=== PATIENT | male | born 1960 | race Caucasian/White ===

== ENCOUNTER 2025-03-10 03:20 | Day surgery (SDC) | payer MEDICARE, SELFPAY ==
[2025-03-10] VITALS (21 sets, daily range): BP systolic 95–149; BP diastolic 68–115; BMI 26.7; BMI 26.3
[2025-03-10 00:58] LABS: % Basophils 0.6 % (0-2); % Eosinophils 1.9 % (0-6); % Immature Granulocytes 0.4 % (0-0.5); % Monocytes 6.7 % (1.7-9.3); % Neutrophils 72.4 % (42.2-75.2); Absolute Eosinophils 0.1 10^3/uL (0-0.7); Absolute Lymphocytes 1.2 10^3/uL (1.2-3.4); Absolute Monocytes 0.5 10^3/uL (0.1-0.6); Absolute Neutrophils 4.9 10^3/uL (1.4-6.5); Hematocrit 38.6 % (39.0-52.0); Hemoglobin 13.2 g/dL (13.0-18.0); Mean Corp Hgb Conc. 34.2 g/dL (33.0-37.0); Mean Corpuscular Hgb 32.9 pg (27.0-31.0); Mean Corpuscular Volume 96.3 fL (80.0-94.0); Mean Platelet Volume 11.4 fL (7.4-10.4); Nucleated Red Blood Cells % 0 % (-); Platelet Count 191 10^3/uL (130-400); Red Blood Cell Count 4.01 10^6/uL (4.70-6.10); Red Cell Dist. Width 13.3 % (11.5-14.5); White Blood Cell Count 6.7 10^3/uL (4.8-10.8)
[2025-03-10 01:09] LABS: INR 0.97; PT 13.2 Sec (11.4-14.6)
[2025-03-10 01:10] LABS: APTT 29.7 Sec (23.4-35.0)
[2025-03-10 01:12] LABS: ALT (SGPT) 14 U/L (0-50); AST (SGOT) 21 U/L (17-59); Albumin 4.2 g/dl (3.5-5.0); Alkaline Phosphatase 52 U/L (38-126); Blood Urea Nitrogen 13 mg/dl (9-20); Calcium 9.3 mg/dl (8.4-10.2); Carbon Dioxide 25 mmol/L (22-30); Chloride 111 mmol/L (98-107); Estimated Creatinine Clearance 84 ml/min; Glucose 116 mg/dl (70-99); Potassium 4.1 mmol/L (3.5-5.1); Sodium 141 mmol/L (135-145); Total Bilirubin 0.6 mg/dl (0.2-1.3); Total Protein 6.5 g/dl (6.3-8.2); eGFR > 60.00
[2025-03-10 01:24] LABS: NT-proBNP 1730 pg/ml; Troponin I 0.041 ng/ml
[2025-03-10 01:35] LABS: Lipase 131 U/L (23-300)
[2025-03-10] MEDS: NITROSTAT (SUBLINGUAL) 0.4 MG SL ×2 (01:36→05:23)
[2025-03-10 01:42] LABS: TSH 0.76 uIU/ml (0.47-4.68)
[2025-03-10] MEDS: ASPIRIN 325 MG PO (02:02)
[2025-03-10] MEDS: HEPARIN 4000 UNITS IV (02:02)
--- NOTE | 2025-03-10 02:13 | HPS.HSE ---
Family Physician
-
Family Physician: NOT KNOW UNKNOWN - PT DOES
Chief Complaint
-
Chest pain
History of Present Illness
This is a 64-year-old was past medical history of CAD status post CABG on 2 separate occasions 2012, status post stenting of saphenous graft 2016, ischemic CMP EF 20%, tobacco dependence, COPD, hyperlipidemia, prior lower extremity DVT as well as a
right upper extremity DVT on anticoagulation with Xarelto, and noncompliance who gets most of his care at [facility] presents to the emergency department today with worsening chest pain.
Patient reports that he has stopped taking his Xarelto about 2 months ago. He also only intermittently takes the Plavix. He said that for the last 6 weeks he has been having exertional chest pain. This lasted few minutes and then resolves. He
initially thought that this was related to heartburn but ultimately stated that it was similar to his anginal episodes in the past. He is not associated with any shortness of breath or dyspnea on exertion until today.
While at a friend's house patient reports having substernal chest pressure and intermittently sharp stabbing pain that lasted for several minutes. It then resolved. There was no radiation at the time. Was not associated with nausea or vomiting.
No diaphoresis.
She attempted to walk a few feet across the street to his own home he had severe chest pressure and dyspnea. He spent almost 50 minutes just walking a few feet. He said the chest pressure persisted. He took some isosorbide at home (not on his
current list) and stated that the symptoms improved slightly. He called his friend who said to take him to the emergency department for evaluation.
His pain improved after sublingual nitroglycerin in the ED and currently states his pain is a 0-1 out of 10 down from 4-5 out of 10.
In the emergency department patient was afebrile, blood pressure was 120/85, pulse rate 80 and satting 98% on room air.
ECG shows normal sinus rhythm at a rate of 87 with PACs, there is old Q waves in the inferior leads. There is also T wave inversions in inferior leads, some upsloping ST segment in the anterior lead. Troponin was 0.04.
CBC is unremarkable. Electrolytes within normal limits. BUN/creatinine were also normal. His BNP is only 1700 which is unchanged from 9 years ago.
Chest x-ray is clear.
Medical History
Past Medical History
Past Medical History: Reports CAD (Status post PA, status post on multiple CABG surgeries), COPD, Hypercholesterolemia and Other
Additional Past Medical History:
Psoriasis
Past Surgical History: Reports Cardiac and Orthopedic (Multiple spinal surgeries including the cervical spine as well as the lumbar spine)
Social History
Tobacco: Smoker
Alcohol: None
Drug: None
Personal: Single
Employment: Retired
Family History
Family History: Not pertinent
Allergies / Home Medications
Allergies reflects when Allergies were last updated in [employer].
Home Medications with original date entered in [employer]
Allergy/Medication List:
Allergies
Allergy/AdvReac Type Severity Reaction Status Date / Time
Penicillins Allergy Anaphylaxis Verified 03/10/25 00:21
Home Medications
clopidogrel 75 mg tablet 75 mg PO DAILY ##30 05/31/16
lisinopril 2.5 mg tablet 2.5 mg PO DAILY ##60 06/29/16
Spironolactone 25 mg tablet, 25 mg p.o. daily
Rivaroxaban 20 mg tablet, 20 mg p.o. at bedtime,
Review of Systems
-
Constitutional: Reports No Symptoms
EENT: Reports No Symptoms
Respiratory: Reports Trouble Breathing
Cardiac: Reports Chest Pain
Abdomen/GI: Reports No Symptoms
: Reports No Symptoms
Musculoskeletal: Reports No Symptoms
Skin: Reports No Symptoms
Neurological: Reports No Symptoms
Endocrine: Reports No Symptoms
Hematologic/Lymphatic: Reports No Symptoms
Psych: Reports No Symptoms
Physical Exam
Vital Signs
Vital Signs
Temp Pulse Resp BP Pulse Ox
97.7 F 80 23 122/85 96
03/10/25 00:18 03/10/25 01:15 03/10/25 01:15 03/10/25 01:36 03/10/25 01:20
Physical Exam
General: Well Developed, Well Nourished and No Apparent Distress
HEENT: NormoCephalic, Moist mucous membranes and Atraumatic
Respiratory: Clear
Cardiac: S1/S2 and Regular Rhythm; No Murmur or Rub
GI: Soft, Non Tender, Non Distended and Normal Bowel Sounds; No Organomegaly
Rectal: Deferred by Provider
Musculoskeletal: No Clubbing, No Cyanosis and No Edema
Skin: No Rash
Neuro: Nonfocal/grossly intact
Laboratory Results
-
03/10/25 00:49
03/10/25 00:49
Laboratory Results
PT 13.2 Sec (11.4-14.6) 03/10/25 00:49
INR 0.97 03/10/25 00:49
APTT 29.7 Sec (23.4-35.0) 03/10/25 00:49
Total Bilirubin 0.6 mg/dl (0.2-1.3) 03/10/25 00:49
AST 21 U/L (17-59) 03/10/25 00:49
ALT 14 U/L (0-50) 03/10/25 00:49
Alkaline Phosphatase 52 U/L (38-126) 03/10/25 00:49
Troponin I 0.041 ng/ml H* 03/10/25 00:49
Lipase 131 U/L (23-300) 03/10/25 00:49
Data Reviewed
-
Diagnostic Radiology: Image Personally Visualized and interpreted
Medical Tests (Nuc Med, Echo, EKG etc): Image Personally Visualized and interpreted
Lab Data: Labs Reviewed by me
Old Records: Reviewed
Impression/Plan
-
IMPRESSION:
64-year-old with known history of CAD status post PA and status post CABG x 2 as well as PCI with 1 stent, reports EF of 20% but no AICD who presents to the emergency department with worsening chest pain over the last 6 weeks and persistent chest
pressure and severe dyspnea on exertion today. ECG shows old infarct with Q waves in the inferior leads, T wave inversions in inferior leads and some nonspecific T wave changes in the septal and anterior leads. Initial troponin was 0.04. His
chest pain was resolved after 1 dose of sublingual nitroglycerin. Patient is noncompliant with his Plavix, statin. He does not take a beta-jerome. History of DVT/PE and is noncompliant with Xarelto due to easy bruising and bleeding-taking the
Xarelto last about 2 months ago. Says he weaned himself off methadone and oxycodone 6 weeks ago.
PLAN:
Chest pain -suspect NSTEMI/ACS. Cannot rule out PE yet. Currently chest pain-free after sublingual nitroglycerin. ECG is nonischemic. Troponin 0.04.
- Admit to telemetry,
- Start aspirin, continue Plavix
� Heparin drip
- cycle cardiac enzymes
- Sublingual nitroglycerin as needed chest pain
- Patient not taking any diltiazem has no history of atrial fibrillation and not currently on anticoagulation
- He also does not report taking any beta-blockade, will hold beta jerome for now
- GDMT seems limited by blood pressure but should be on carvedilol, lisinopril, spironolactone
- non-compliant with statin due to severe myalgias with atorvastatin, checking lipid panel, consider ezetimibe, repatha
- echo,
- unlikely PE, check d-dimer, on AC for now.
- obtain records from Dr. Sudhir Guerrero in am
- cardiology consult
DVT PPX - on heparin gtt
Code Status - Full Code, does not want to have trach/prolonged mech ventilation > 10 days.
--- NOTE | 2025-03-10 02:17 | ED.GENMED ---
History of Present Illness
General
Chief Complaint: Chest Pain
Source: patient
Exam Limitations: none
Time Seen by Provider: 03/10/25 00:34
Nursing documentation reviewed up to this point in time: agreed with
History of Present Illness
History of Present Illness:
Note:
CHIEF COMPLAINT(S)
Chest pain and dyspnea.
HISTORY OF PRESENT ILLNESS
The patient is a 64-year-old male with a history of congestive heart failure who presents with chest pain experienced intermittently over the past six weeks. This evening, while sitting and talking, the patient experienced sudden-onset chest pain
and dyspnea. The patient reports difficulty walking more than 10 feet due to shortness of breath. Relief was achieved within five minutes after taking a dose of long-acting nitroglycerin (isosorbide). The patient describes ongoing chest pressure
despite resolution of dyspnea. The patient does not report a history of fluid retention or acute weight gain. He is currently under the care of a corporate director talent assessment. (Sudhir/Yolanda) The patient smokes approximately a pack of cigarettes per day and
expresses difficulty quitting despite using nicotine patches. No additional symptoms were noted at this time.
SOCIAL DETERMINANTS AFFECTING HEALTH
The patient reports smoking a pack of cigarettes per day and attempting smoking cessation with nicotine patches.
REVIEW OF SYSTEMS
- Cardiovascular: Chest pain, chest pressure, shortness of breath.
- Respiratory: Shortness of breath with exertion.
PHYSICAL EXAM
- Cardiovascular: Notable heart murmur auscultated.
PLAN
The plan includes further evaluation with laboratory tests to assess for dehydration and review of cardiac status as needed. Coordination with the patients corporate director talent assessment will be undertaken to determine if urgent consultation is necessary.
DIFFERENTIAL DIAGNOSIS
The Differential Diagnosis includes, in no particular order and is not limited to:
- Angina pectoris
- Myocardial infarction
- Congestive heart failure exacerbation
- Pulmonary embolism
- Aortic stenosis
- COPD exacerbation
- Pneumonia
- Pneumothorax
- Anxiety/panic attack
- Gastroesophageal reflux disease
CARE-UPDATE
03/10/25 - 01:[address] Hogan, sieve maker. Recommended starting Xarelto alongside heparin. Admission to the hospital service advised for further management.
Disposition:
SUMMARY OF ENCOUNTER
64-year-old male with extensive cardiac history presents with intermittent chest pain for the last six weeks that worsened this evening. EKG shows ischemia.
DISPOSITION
The patient will be admitted to the hospital service.
MANAGEMENT OF THE PATIENTS CARE WAS DISCUSSED WITH
Interventional cardiology recommended holding calcium channel blockers due to a reported 15% ejection fraction and starting heparin.
INDEPENDENT REVIEW OF LABS AND INTERPRETATION OF TESTS
My independent review of troponin is elevated to nine.
MEDICATION RECONCILIATION
Patient to be started on heparin and will receive aspirin.
MEDICAL DECISION MAKING
1. Number & Complexity of Problems: Chronic conditions affecting care include congestive heart failure and related ischemia. Differential diagnosis considered includes acute coronary syndrome.
2. Data Reviewed: EKG showing ischemia, troponin level.
3. Risk: Consideration of admission was made due to complexity/risk, which was deemed appropriate based on elevated troponin and symptomatic presentation.
PATHOLOGIES TO CONSIDER
- Acute coronary syndrome (chest pain with risk factors)
- Congestive heart failure exacerbation
Past History
Past History
ED Past Medical History: CAD, CHF and [place]
ED Past Surgical History: Cardiac (harvested radial artery for CABG)
Social History
Tobacco: Former smoker
Alcohol: None
Drug: None
Personal: Other (Noncontributory)
Living: with family
Employment: Employed
Family History
Family History: Other
Review of Systems
Review of Systems
Allergies reviewed?: Yes
All Other Systems: ROS reviewed and negative except as documented in HPI and ROS
Constitutional: Reports no symptoms
EENT: Reports no symptoms
Respiratory: Reports no symptoms
Cardiac: Reports chest pain
ABD/GI: Reports no symptoms
: Reports no symptoms
Musculoskeletal: Reports no symptoms
Skin: Reports no symptoms
Neurological: Reports no symptoms
Endocrine: Reports no symptoms
Hematologic/Lymphatic: Reports no symptoms
Psychiatric: Reports no symptoms
Phy Exam
General Physical Exam
General Presentation: well appearing and moderate distress
General Skin: warm and dry
General Habitus: normal
General Mental: alert
General Hydration: appears well hydrated
ENT Exam
ENT Exam: EOMI, pharynx normal, neck supple and normocephalic
Eye Exam
Eye Exam: PERRL, cornea clear and conjunctiva normal
Cardiovascular Exam
Cardiovascular Exam: regular rate/rhythm, no edema, no murmur and normal peripheral pulses
Systolic Murmur: 2/6
Pulmonary Exam
Pulmonary Exam: lungs clear, no respiratory distress, no rales, no crackles, no rhonchi, no stridor, no wheezing and no cough
Gastrointestinal Exam
Gastrointestinal Exam: normal bowel sounds, non tender, soft, no organomegaly, no pulsatile mass and non distended
Neurological Exam
Neurological Exam: alert, oriented x3, no motor deficits and speech normal
Musculoskeletal Exam
Musculoskeletal Exam: full ROM and no edema
Skin Exam
Skin Exam: normal color, warm/dry, no rash and no petechia
Psychiatric Exam
Psychiatric Exam: normal mood/affect
Scores
Heart Score for Chest Pain Patients
STEMI patient?: No
History: Highly Suspicious
ECG: Significant ST-Depression
Age: >/= 65 years
Risk Factors: >/= 3 Risk Factors or History of CAD
Troponin: >1 - <3 x Normal Limit
Heart Score for Chest Pain Patients: 9
Heart Score Risk: 72.7 % MACE over next 6 weeks
Course
Orders/Labs/Results
Orders:
Orders
03/10/25 00:22
ECG [Electrocardiogram (*1)] Urgent
Reason for Study: Shortness of Breath
EKG- Treatment ONCE
03/10/25 00:38
Cardiac Monitoring- Treatment ONCE
03/10/25 00:39
CR Chest - 2 Views Urgent
Comment:
Reason For Exam: cp
03/10/25 00:49
Complete Blood Count/With Diff Urgent
Comprehensive Metabolic Panel Urgent
Lipase Urgent
NT-proBNP Urgent
PTT Urgent
Prothrombin Time Urgent
TSH Urgent
Troponin I Q3H
03/10/25 01:31
Nitroglycerin Sublingual [Nitrostat (Sublingual)] 0.4 mg SL NOW STA
03/10/25 01:51
Heparin 4,000 units IV NOW STA
Pharmacy Request to Place See Dose Instructions PO NOW STA
Discontinue all Active Warfarin orders?: Yes
Nursing to Place Non Medication Order As Directed
Physician Order: PTT 6 hours after initial start of Heparin infusion
03/10/25 01:53
Aspirin 325 mg PO NOW STA
03/10/25 02:00
Heparin 59414 Units/250 ml 25,000 units in 250 ml IV PER PROTOCOL
Weight to be used for heparin protocol in kilograms (kg):: 84.4
Protocol:: Cardiac Tx/Acute Coronary
PTT Goal Range to be used:: PTT 73 to 111 seconds
Order type:: Initial
INITIAL Infusion Dose (UNITS/KG/hr) & then follow protocol:: 12 units/kg/hr
Infusion Dose in UNITS/hr & then follow protocol (UNITS/hr):: 1,000
INFUSION RATE in mL/hr & then follow protocol (mL/hr):: 10
PTT less than or equal to 64 seconds:: Increase rate by 200 units/hr (+ 2 mL/hr)
PTT 64.1 to 72.9 seconds:: Increase rate by 100 units/hr (+ 1 mL/hr)
PTT 73 to 111 seconds:: Target Range. No change in rate.
PTT 111.1 to 130.9 seconds:: Decrease rate by 100 units/hr (- 1 mL/hr)
PTT 131 to 199.9 seconds:: HOLD for 1 hr. Then decrease rate by 200 units/hr (- 2 mL/hr)
PTT greater than or equal to 200 seconds:: HOLD for 2 hrs & Notify Provider. Then decrease by 200 units/hr (-
2 mL/hr)
Lab follow-up:: Each change, PTT q6h until 2 consecutive are therapeutic. Then PTT
daily.
Pharmacy Request to Place See Dose Instructions IV DIRECTED
03/10/25 03:45
Troponin I Q3H
Abnormal Lab Results
03/10/25
00:49
RBC 4.01 L 10^6/uL
(4.70-6.10)
Hct 38.6 L %
(39.0-52.0)
MCV 96.3 H fL
(80.0-94.0)
MCH 32.9 H pg
(27.0-31.0)
MPV 11.4 H fL
(7.4-10.4)
Lymphocytes % 18.0 L %
(20.5-51.1)
Chloride 111 H mmol/L
(98-107)
Glucose 116 H mg/dl
(70-99)
Troponin I 0.041 H* ng/ml
03/10/25 00:49
03/10/25 00:49
Vital Signs
Initial and Last Documented VS:
Initial Vital Signs
Temp Pulse Resp BP Pulse Ox
97.7 F 90 22 132/92 96
03/10/25 00:18 03/10/25 00:18 03/10/25 00:18 03/10/25 00:18 03/10/25 00:18
Last Documented Vital Signs
Temp Pulse Resp BP Pulse Ox
97.7 F 80 23 122/85 96
03/10/25 00:18 03/10/25 01:15 03/10/25 01:15 03/10/25 01:36 03/10/25 01:20
*Radiology
Radiology exam reviewed: all reviewed NAD by ED Provider
*Pulse Oximetry
SaO2: 96
Oxygen Mode of Delivery: Room air
*Critical Care Note
Total Time (30-74mins, 75-104mins- exclusive of procedures): 44 (Critical care statement: A total of 44minutes of critical care time was provided for this patient. This time is separate from time utilized to perform the aforementioned documented
procedures. Aggregate critical care time includes only time during which I was engaged in work directl)
ED Attending Note
-
Portions of this chart may have been created with voice recognition software.� Occasional wrong word or��sound alike� substitutions may have occurred due to the inherent limitations of voice recognition software.
Discharge Plan
Departure
Patient Disposition: Admit
Date of Disposition: 03/10/25
Time of Disposition: 02:19
Admit to: IVU
Presentation/result/management discussed w/ accepting MD/DO: Hospitalist
Discharge Problem:
Acute non-ST elevation myocardial infarction (NSTEMI)
Prescriptions:
No Action
atorvastatin 80 MG tablet
80 mg PO QPM Qty: 30 3RF
clopidogrel 75 MG tablet
75 mg PO DAILY Qty: 30 3RF
carvedilol 3.125 MG tablet
3.125 mg PO BID Qty: 60 3RF
diltiazem HCl 120 MG capsule,extended release 24hr
120 mg PO DAILY Qty: 30 3RF
lisinopril 2.5 MG tablet
2.5 mg PO DAILY Qty: 60 3RF
Rx Instructions:
reduce to once daily until further instruction by corporate director talent assessment
Referrals:
UNKNOWN - PT DOES,NOT KNOW [Family Provider]
Interventions
Interventions:
*Risk Screen - Suicide Last Done: 03/10/25 00:18
*General Assessment Last Done: 03/10/25 01:19
*Neglect/Abuse Screening Last Done: 03/10/25 00:18
*ED COVID-19 Vaccine History Last Done: 03/10/25 01:19
ED- Cardiac Assessment Last Done: 03/10/25 01:20
ED- Pulmonary Assessment Last Done: 03/10/25 01:20
Discharge Date and Time
Print Language: BENGALI
[2025-03-10] MEDS: HEPARIN 25000 UNITS/250 ML IV (02:47)
[2025-03-10 05:36] LABS: Troponin I 0.042 ng/ml
--- NOTE | 2025-03-10 06:01 | W.PN.UPDATE ---
Update Note
Progress Note Update
- Around 5 AM, reported by the nursing staff that EKG result shows STEMI. EKG Result reviewed by admitting physician and cardiology shoes salesperson, Patient was free of chest pain at this time. Vital signs stable.
-Few mins later, chest pain started in the RT middle of the chest 03/28. BP 133/87, hr 82, afebrile RR 18, spo2 95%.
Pain down to /10 after one dose of nitro SL.
Repeated troponin 0.042 previously 0.041.
EKG repeated and reviewed with the admitting physician and cardiology shoes salesperson.
Nitro gtt started and transferred to IVU.
[2025-03-10] MEDS: OFIRMEV IV (06:34)
--- NOTE | 2025-03-10 06:34 | PTCARENOTE ---
Pt arrived to 4E from ED @ 0430. Q3 trop done and EKG done. EKG shows STEMI. Within 5 minutes- pt started to complain of CP- VSS. Gave a dose of nitro with positive results. CLIENT SERVICE ADMINISTRATOR contact cards- IVU orders to transfer pt. Pt and belongings went down
with pt in IVU rm [id number]
[2025-03-10] MEDS: OFIRMEV 100 IV (06:47)
[2025-03-10] MEDS: NITROGLYCERIN PREMIX 250 IV (07:07)
[2025-03-10] MEDS: NICODERM TRANSDERMAL 14 MG TRANSDERM (08:19)
[2025-03-10] MEDS: PLAVIX 75 MG PO (08:20)
[2025-03-10] MEDS: ALDACTONE 25 MG PO (08:20)
[2025-03-10] MEDS: COREG 3.125 MG PO ×2 (08:21→19:36)
[2025-03-10] MEDS: LOW STRENGTH ASPIRIN 81 MG PO (08:21)
[2025-03-10 09:04] LABS: APTT 37.6 Sec (23.4-35.0)
[2025-03-10 09:18] LABS: HDL Cholesterol 57 mg/dl; LDL Cholesterol, Calculated 149 mg/dl; Total Cholesterol 224 mg/dl (50-199); Triglyceride 94 mg/dl (10-149); Very Low Density Lipoprotein 18 mg/dl (0-30)
[2025-03-10 09:29] LABS: Troponin I 0.036 ng/ml
[2025-03-10 09:37] LABS: Glycohemoglobin (HgbA1c) 5.4 % (4.0-5.6)
[2025-03-10 09:45] LABS: D-Dimer 0.37 ug/mlFEU (0.00-0.50)
[2025-03-10] MEDS: IMODIUM 4 MG PO ×2 (09:53→21:50)
[2025-03-10] MEDS: NEURONTIN 800 MG PO ×3 (09:53→22:54)
--- NOTE | 2025-03-10 10:51 | CARDSERVLU ---
Echocardiogram with [facility] completed after protocol screening completed. Allergies verified.
Patent IV site: WR
IV site flushed with 0.9% NaCl pre and post administration.
Diluted bolus method utilized to enhance visualization of ventricular dimas.
Total volume given: ___3_ mL
Patient tolerated all procedures well without complications.
--- NOTE | 2025-03-10 11:03 | CON.CAR ---
Addendum entered and electronically signed by Ronal Boss MD 03/10/25 11:48:
I added lisinopril 2.5 mg twice daily for afterload reduction it appears he has taken this in the past
Original Note:
Consultation
Consultation Request
Date/Time Consultation Requested: March 10, 2025
Date/Time Consultation Performed: March 10, 2025
Requesting Provider: Hospitalist, [facility]
Performing Provider: Gera
Reason for Consultation: 6 weeks of recent onset angina which is progressive
Medical History
-
Chief Complaint: Unstable angina
History of Present Illness:
64-year-old male with extremely complex medical history and also sounds like he has been recently noncompliant with both his Plavix and Xarelto. He apparently has a hypercoagulable state with lower extremity and upper extremity DVT and has been
maintained on Xarelto therapy. He admits to not taking Xarelto or Plavix on and off for the last 2 months. He has had 6 weeks of consistent anginal type symptoms coming on with activity and better with rest. What brought him to the emergency room
yesterday is that he noticed substernal chest pressure after about 10 paces of walking which took longer to go away and he came to the emergency room. He has an extensive medical history which will be delineated in the HPI. 3 prior cardiac
surgeries with a cardiac catheterization and attempted intervention between the 2nd and 3rd coronary artery bypass. Initial cardiac bypass at [facility] in 2011 with a MG to the LAD and a vein to the diagonal which both are known to be
occluded. Subsequent second coronary bypass in 2012 at [facility] where a GELA was taken down but felt not to be adequate and a vein graft was placed to the LAD. In 2015 the SVG to the LAD was noted to have extremely high clot burden and
stenosis with a long [place] vessel occlusion. There is an attempted intervention on the MG to the LAD at that time which was unsuccessful as well see catheterization from Dr. Smith in May 2016. Subsequently presented for a third coronary
artery bypass in [address] Jean with significant adhesion and the left radial artery graft was placed off-pump from a virgin portion of the aorta down onto a site in the mid LAD distal to the prior grafts. The patient is known to have
significant [place]-apache diagonal disease as well. Periods of time he has had intermittent ejection fractions between 20 and 50% I did perform echocardiogram which will be related below. His presenting cardiogram here demonstrates transmural anterior
myocardial infarction with ST elevation which by gestalt appears to be an aneurysmal anterior wall segment. I do not have ECGs between 2016 and today to clarify timing. Presenting cardiogram here would also suggest a recent inferior infarct with T
wave inversions in 2 [address] segments in the inferior leads are dynamic at times. He has been pain-free since admission here on IV heparin and IV nitroglycerin. His troponins thankfully have been 0.03-0.04 and seen in the IBU
currently pain-free. His echocardiogram demonstrates an ejection fraction of approximately 20% with a large anterior apical wall motion abnormality with thinning and dyskinesis suggesting more of a chronic issue. The lateral and inferolateral
dimas at the base to mid ventricle appear to be moving relatively well. There is no LV thrombus. He does have moderate mitral regurgitation.
Past Medical History
Past Surgical History: Cardiac
Social History
Tobacco: Smoker
Alcohol: None
Drug: None
Personal:
Living: With Family
Employment: Other
Family History
Family History: Reviewed & Not Pertinent
Allergies / Home Medications
Allergy/AdvReac Type Severity Reaction Status Date / Time
Penicillins Allergy Anaphylaxis Verified 03/10/25 00:21
�Medication �Instructions �Recorded �Confirmed �Type
atorvastatin 80 mg tablet 80 mg PO QPM ##30 05/31/16 04/23/17 Rx
carvedilol 3.125 mg tablet 3.125 mg PO BID ##60 05/31/16 04/23/17 Rx
clopidogrel 75 mg tablet 75 mg PO DAILY ##30 05/31/16 04/23/17 Rx
diltiazem HCl 120 mg 120 mg PO DAILY ##30 06/29/16 04/23/17 Rx
capsule,extended release 24 hr
lisinopril 2.5 mg tablet 2.5 mg PO DAILY ##60 06/29/16 04/23/17 Rx
Review of Systems
-
All other systems: Negative unless noted
Respiratory: Trouble Breathing
Cardiac: Chest Pain
Physical Exam
Vital Signs
Temp Pulse Resp BP Pulse Ox
97.6 F 78 20 149/100 98
03/10/25 06:59 03/10/25 08:20 03/10/25 06:59 03/10/25 08:20 03/10/25 06:59
Lab Results
03/10/25 00:49
03/10/25 00:49
Troponin I 0.036 ng/ml H* 03/10/25 08:45
Lsg-M-Xbkmubmvfgi Pept 1730 pg/ml 03/10/25 00:49
Physical Exam
General: Well Developed, Well Nourished and No Apparent Distress
HEENT: Normocephalic and Anicteric
Respiratory: Clear
Cardiac: S1/S2 and Regular Rhythm
Breast: Deferred by me
GI: Soft, Non Tender and Non Distended
Rectal: Deferred by Provider
Genito-urinary: Other
Musculoskeletal: No Clubbing and No Cyanosis
Skin: Warm and Dry
Neuro: Awake, Alert and Oriented
Hematologic/Lymphatic: No Lymphadenopathy
Psych: Calm
Impression / Plan
-
Impression:
History of coronary artery bypass surgery in 2011 at [facility] MG to LAD and vein to diagonal both known to be occluded
Redo coronary artery bypass surgery 2012 at [facility] with vein graft to LAD
2016 cardiac catheterization demonstrating heavy clot burden with that vein graft to LAD and failed attempted intervention to the MG graft
Redo redo coronary artery bypass surgery off-pump with the left radial graft to the LAD distal to the other prior grafts in [address] Jean
Medical noncompliance
Ischemic cardiomyopathy
Tobacco use
Apparent hypercoagulable disorder with lower and upper extremity thrombus�DVT on chronic oral anticoagulation
Noncompliance with oral anticoagulation
Hypertension
Unstable angina
Recommendations:
-Continue IV nitroglycerin
-Continue IV heparin
-Would plan to perform left heart catheterization on Tuesday, March 11 as we would need to reassess his LAD territory and the radial graft which was placed in 2016 and also assess his circumflex and right coronary territories in case he has developed
new lesions in those territories. His story is consistent with progressive angina
- Obviously will need old records and details of the last 9 years of care up at [facility]. I would presume he has a lifelong indication for or in a coagulation given all his clotted grafts
-See full report but his echo would suggest a thinned and dyskinetic anterior apical left ventricle and I would be surprised if there is dormant or revascularizable territory in that region
- Patient in agreement with plan for left heart catheterization on Tuesday and will keep n.p.o.
- Heparin is being utilized as the antithrombotic regimen as well as DAPT therapy
- Post left heart catheterization would be reasonable to consider single antiplatelet plus NOAC therapy if stenting is performed
- I took time to answer all questions. Of note his left radial was taken for the third cardiac surgery
Data Reviewed
-
EKG: Tracing Personally Visualized and interpreted
Radiology: Image Personally Visualized and interpreted
Ultrasound: Image Personally Visualized and interpreted
Labs: Labs Reviewed by me
Old Records: Requested
[2025-03-10] MEDS: TYLENOL 650 MG PO ×2 (12:24→21:50)
[2025-03-10] MEDS: LASIX 20 MG IV (12:24)
--- NOTE | 2025-03-10 12:44 | W.PN.HOSP.TC ---
Today's Communication/Plan
-
Assessment / Plan
Assessment / Plan
General: No Apparent Distress, Comfortable and Conversant
HEENT: NormoCephalic, Moist mucous membranes, Atraumatic
Respiratory: Clear and Non Labored Respirations
Cardiac: S1/S2 and Regular Rhythm; No Rub or Gallop
GI: Soft, Non Tender, Non Distended and Normal Bowel Sounds
Musculoskeletal: No Edema, no deformity
Skin: Warm and dry
: NO Lazcano
Neuro: Awake, Alert, Nonfocal/grossly intact
Psych: Calm and Intact Judgment/Insight
Mr. Koenig is a 64-year-old male with a complex medical history including multiple cardiac bypass procedures (2011, 2012, 2015) and PCI, HFrEF, COPD, tobacco use, psoriatic arthritis (multiple orthopedic surgeries, chronic pain medications), methadone
dependence (recently weaned himself off), multiple DVTs (on Xarelto), and medication nonadherence who presented with worsening substernal chest pain relieved with nitro. He has been taking his Xarelto and Plavix intermittently over the past few
weeks. He has also been experiencing frequent loose stools/diarrhea over the past few weeks after he weaned himself off of methadone. In the ED he had ongoing chest pain relieved with nitro. His troponins were mildly elevated and his EKGs have
been abnormal. He has been started on IV heparin drip and nitro drip and admitted for further evaluation and management.
NSTEMI:
- Significant CAD history with multiple cardiac bypass procedures and PCI complicated by thromboses
- Continue anticoagulation with IV heparin and DAPT for now
- Echo shows severely reduced ejection fraction of 20% with severe global hypokinesis
- Continue nitro drip
- Cardiology following, plan for [facility] tomorrow 03/11
HFrEF:
- Echocardiogram here shows EF 20%
- Continue beta-blockade with carvedilol 3.125 mg p.o. twice daily
- Afterload reduction with lisinopril 2.5 mg p.o. twice daily
- Continue diuresis with Lasix 20 mg IV daily for now
- Spironolactone 25 mg p.o. daily
Psoriatic arthritis:
- With chronic pain treated most recently with methadone and gabapentin
- Patient titrated himself off methadone recently with subsequent development of diarrhea, relieved with loperamide which we will continue
- Continue gabapentin 800 mg 3 times daily which is a significantly high dose, however patient says he actually takes 800 mg 4 times a day at home
History of multiple DVTs:
- Uses Xarelto at home, currently holding well he is anticoagulated with IV heparin drip
- Patient also has history of multiple thromboses in his coronary grafts
- Will continue Xarelto once IV heparin drip discontinued
COPD:
- DuoNebs and oxygen as needed
- Med rec will need to be clarified to the patient's correct home medications can be continued
- Nicotine patch provided, encourage smoking cessation
DVT prophylaxis: IV heparin drip
CODE STATUS: Full code
Total time spent on today's encounter was 45 minutes
Anticipated Discharge: > 48 hours
Subjective/Interval History
-
Date of Service: March 10, 2025
Patient was seen and examined at bedside this morning. Currently comfortable. Continuing anticoagulation with IV heparin. Awaiting echocardiogram.
Objective Data
-
Labs:
Laboratory Results
03/10/25 03/10/25 03/10/25
00:49 08:45 15:30
WBC 6.7
Hgb 13.2
Hct 38.6 L
Plt Count 191
PT 13.2
INR 0.97
APTT 29.7 37.6 H Pending
Sodium 141
Potassium 4.1
Chloride 111 H
Carbon Dioxide 25
BUN 13
Creatinine 0.9
Glucose 116 H
Calcium 9.3
Total Bilirubin 0.6
AST 21
ALT 14
Alkaline Phosphatase 52
Vital Signs:
Vital Signs
Temp Pulse Resp BP Pulse Ox
97.8 F 81 20 113/73 98
03/10/25 12:01 03/10/25 12:24 03/10/25 12:01 03/10/25 12:24 03/10/25 12:01
Review of Systems
-
History Source: Patient
All other systems: Reviewed and negative
Abdomen/GI: Reports Diarrhea
Physical Exam
-
General: No Apparent Distress
[2025-03-10] MEDS: DUONEB 3 ML INH (14:40)
[2025-03-10] MEDS: SYMBICORT 160/4.5 MCG INHALER 2 PUFF INH (14:47)
--- NOTE | 2025-03-10 15:00 | PTCARENOTE ---
Pt c/o respiratory distress. Pulse ox 97 % on 2 liters nasal cannula O2. Posterior lungs rhonchoris w/ expiratory wheezing. Pt stated that he felt like he was going to pass out when sitting up in bed. Respiratory treatments as ordered. Pt
feels 100% better since rest and respiratory treatments.
--- NOTE | 2025-03-10 15:30 | PTCARENOTE ---
Pt noted to have an 8 beat run of VT. Pt asymptomatic. Will monitor.
[2025-03-10 16:51] LABS: APTT 47.8 Sec (23.4-35.0)
[2025-03-10] MEDS: ZESTRIL 2.5 MG PO (19:36)
--- NOTE | 2025-03-10 22:04 | PTCARENOTE ---
at approx 21:30 Patients IV pump alarming, this RN fixed pump. While in patients room pt c/o SOB and sternal chest pain. Described pain as
'constant aching and pressure'. Rated pain a /10. Patient sating 96% RA, applied 2L for comfort d/t him c/o SOB. Pulse ox now 96% on 2LO2. Pt reports good relief. This RN increased IV Nitroglycerin gtt from 5mcg to now 10mcg. BP stable. C/o
headache pain, PRN Tylenol administered--see NOV.
When asking patient in regards to the pain about when it begun and was he doing anything to aggravate the symptoms. Patient reports pain started about an hour and half ago. Patient explains that he was talking to a daughter on the phone and states
'I bump heads with her'. After the phone call with the daughter he was then on a phone call with a friend. Patient educated to report to RN immediately if any symptoms occur that way they can be addressed in a timely manor. Evgeny aware. IV
Heparin gtt infusing, next ptt due at 23:15. Patient aware to maintain NPO status at midnight for poss cath on 03/11. Call castro within reach.
[2025-03-11] VITALS (14 sets, daily range): BP systolic 92–132; BP diastolic 50–99; BMI 26.3; BMI 25.8
[2025-03-11 00:05] LABS: APTT 68.2 Sec (23.4-35.0)
[2025-03-11] MEDS: HEPARIN 25000 UNITS/250 ML IV (00:15)
[2025-03-11] MEDS: DUONEB 3 ML INH ×2 (04:58→23:51)
[2025-03-11] MEDS: TYLENOL 650 MG PO (05:52)
[2025-03-11 06:33] LABS: APTT 89.5 Sec (23.4-35.0)
--- NOTE | 2025-03-11 06:39 | PTCARENOTE ---
Patient stated 'I want to leave. I want to be home with my dog. If I'm going to croak I would rather be with my dog'. Emotional support provided. Patient reached out to friend 'Alondra' for support, whose currently looking after patients dog.
Patient willing to stay for procedure at this time. Evgeny IT SECURITY ENGINEER aware. No new orders. Pt remains NPO for procedure. Will pass along to day shift RN.
[2025-03-11] MEDS: SYMBICORT 160/4.5 MCG INHALER 2 PUFF INH ×2 (07:23→17:53)
[2025-03-11] MEDS: PLAVIX 75 MG PO (08:27)
[2025-03-11] MEDS: LOW STRENGTH ASPIRIN 81 MG PO (08:27)
--- NOTE | 2025-03-11 10:24 | W.PN.HOSP.TC ---
Today's Communication/Plan
-
Await cardiac catheterization
Assessment / Plan
Assessment / Plan
General: No Apparent Distress, Comfortable and Conversant
HEENT: NormoCephalic, Moist mucous membranes, Atraumatic
Respiratory: Clear and Non Labored Respirations
Cardiac: S1/S2 and Regular Rhythm; No Rub or Gallop
GI: Soft, Non Tender, Non Distended and Normal Bowel Sounds
Musculoskeletal: No Edema, no deformity
Skin: Warm and dry
: NO Lazcano
Neuro: Awake, Alert, Nonfocal/grossly intact
Psych: Calm and Intact Judgment/Insight
NSTEMI/CAD:
- Significant CAD history with multiple cardiac bypass procedures and PCI complicated by thromboses
- Continue anticoagulation with IV heparin and DAPT for now
- Echo shows severely reduced ejection fraction of 20% with severe global hypokinesis
- Continue nitro drip
- Cardiology following, plan for [facility] today 03/11. Troponin peaked at 0.042.
Chronic HFrEF:
- Echocardiogram here shows EF 20%
- Continue beta-blockade with carvedilol 3.125 mg p.o. twice daily
- Afterload reduction with lisinopril 2.5 mg p.o. twice daily
- Continue diuresis with Lasix 20 mg IV daily for now
- Spironolactone 25 mg p.o. daily
Psoriatic arthritis:
- With chronic pain treated most recently with methadone and gabapentin
- Patient titrated himself off methadone recently with subsequent development of diarrhea, relieved with loperamide which we will continue
- Continue gabapentin 800 mg 3 times daily which is a significantly high dose, however patient says he actually takes 800 mg 4 times a day at home
History of multiple DVTs:
- Uses Xarelto at home, currently holding well he is anticoagulated with IV heparin drip
- Patient also has history of multiple thromboses in his coronary grafts
- Will continue Xarelto once IV heparin drip discontinued
COPD:
- DuoNebs and oxygen as needed
- Med rec will need to be clarified to the patient's correct home medications can be continued
- Nicotine patch provided, encourage smoking cessation
DVT prophylaxis: IV heparin drip
CODE STATUS: Full code
Updated at the bedside.
Anticipated Discharge: Within 24 hours
Subjective/Interval History
-
Date of Service: March 11, 2025
Patient seen and examined. No complaints currently. Did have chest pain earlier in the morning.
Objective Data
-
Labs:
Laboratory Results
03/10/25 03/11/25 03/11/25
23:48 06:08 12:10
APTT 68.2 H 89.5 H Pending
Vital Signs:
Vital Signs
Temp Pulse Resp BP Pulse Ox
97.7 F 66 16 107/64 97
03/11/25 07:20 03/11/25 08:26 03/11/25 07:24 03/11/25 08:26 03/11/25 07:20
I&O
03/10/25 03/11/25 03/12/25
06:59 06:59 06:59
Intake Total 1708.4 / 1708.4
Output Total 1125 / 1125
Balance 583.4 / 583.4
Review of Systems
-
History Source: Patient
All other systems: Reviewed and negative
[2025-03-11] MEDS: NEURONTIN 800 MG PO ×3 (10:58→22:41)
[2025-03-11] MEDS: NICODERM TRANSDERMAL 14 MG TRANSDERM (10:58)
[2025-03-11] MEDS: COREG 3.125 MG PO (10:59)
[2025-03-11] MEDS: ZESTRIL 2.5 MG PO (10:59)
[2025-03-11] MEDS: ALDACTONE 25 MG PO (10:59)
[2025-03-11] MEDS: LASIX 20 MG IV (10:59)
--- NOTE | 2025-03-11 11:00 | PTCARENOTE ---
Pt is AOx3, no complaints of pain or discomfort. Heparin gtt and nitro gtt infusing per orders. NPO for process laboratory specialist later today. SR on tele monitor, VSS. CAll castro within reach.
--- NOTE | 2025-03-11 11:29 | CM ---
Chart reviewed. Patient is independent of ADLS, lives alone in a apartment, [address], 0 DME. Plan is for the patient to return home. CM to follow
[2025-03-11 13:40] LABS: APTT 71.2 Sec (23.4-35.0)
--- NOTE | 2025-03-11 14:31 | PTCARENOTE ---
pt left for lab systems analyst. heparin gtt stopped. friend at bedside updated. report given to lab systems analyst RN
--- NOTE | 2025-03-11 16:37 | ITS.CL.CATH ---
[facility] - Catheterization
Cardiac Catheterization
Procedure Report:
LEFT HEART CATHETERIZATION
Date of Procedure: March 11, 2025
Procedures performed:
1: Coronary angiography
2: Free radial and saphenous vein bypass graft angiography
3: Left ventricular hemodynamic assessment
Primary Biodiesel Engineering Manager: Dr. Edda Lassiter
INDICATION: The patient is a 64-year-old male with a past medical history significant for a ischemic cardiomyopathy status post 3 separate CABG procedures last in 2016 with a free radial off-pump graft to the LAD, medical noncompliance, chronic pain
status post spine stimulator and multiple back and neck surgeries, ongoing smoking, prior opiate dependence, and hypertension who has been off many of his medicines for about 7 weeks and presented with chest pain. Echocardiogram performed yesterday
showed severe LV dysfunction with an EF of 15 to 20%. He has been on chronic Xarelto therapy for his low EF with a risk for LV thrombus. Troponin was very mildly elevated at a peak of 0.042.
ACCESS: The patient was prepped and draped in usual sterile fashion. A 5 Japanese sheath was placed in the right common femoral artery using the Seldinger over the wire technique.
HEMODYNAMIC FINDINGS (mmHg):
LV(s/d,EDP): 110/14, 16
Ao(s/d,m): 110/63, 83
ANGIOGRAPHIC FINDINGS:
Single-plane Left Ventriculography in [place] Projection: Not done
Coronary Angiography:
Dominance: Right
Left Main: Normal
Left Anterior Descending: Flush proximal occlusion.
Ramus intermedius: Medium caliber, widely patent.
Left Circumflex: The left circumflex is a relatively large nondominant system that gives rise to 1 very large low lateral obtuse marginal branch that courses to the lateral apex. There is smooth 40% mid circumflex stenosis followed by a long 30%
proximal OM 1 lesion which is new compared to prior angiography in 2016. No evidence of flow-limiting disease with normal distal flow in all vessels.
Right Coronary: The right coronary artery is a very large caliber dominant vessel that gives rise to a widely patent medium caliber posterior descending artery and posterior left ventricular branch system.
Other angiography:
1: Free radial to LAD: The free radial graft has a very unusual takeoff from the transverse aorta between the innominate and left common carotid takeoffs. The graft was engaged with a 5 Japanese AL-1 catheter. The graft itself is widely patent with
no focal disease in the graft or at either anastomosis. There is retrograde filling of the LAD with a 80 to 90% stenosis in the LAD jeopardizing flow into the previously grafted diagonal branch which has normal resting flow. The saphenous vein
graft which was previously anastomosed to the diagonal branch is now flush occluded.
2: SVG to diagonal: Flush occlusion at the aorta.
Fluoroscopy Time (min): 11.8
Radiation Dose (mGy): 434
DAP (Gy.cm2): 37
Closure device: None. A TR band was applied for hemostasis at the right wrist.
Complications: None.
ASSESSMENT:
1: Widely patent free radial to LAD graft as described above.
2: Nonobstructive disease in the teller RCA and circumflex arteries.
3: Branch vessel obstructive disease in the diagonal branch which fills retrograde from the patent radial to LAD graft. I would treat this medically as any PCI attempt would be extremely challenging and associated with significant risk for injuring
the graft to the LAD.
CONCLUSIONS and RECOMMENDATIONS:
1: Aggressive medical therapy for coronary artery disease.
2: Smoking cessation remains critical intervention to reduce his future morbidity mortality from vascular events.
3: Encouraged medical compliance and regular follow-up.
Flaquito Smith M.D.
[2025-03-11] MEDS: FLUSH (NSS) 1 FLUSH IV (19:51)
[2025-03-11] MEDS: COREG PO (21:22)
[2025-03-11] MEDS: ZESTRIL PO (21:24)
--- NOTE | 2025-03-11 21:30 | PTCARENOTE ---
Received pt at change of shift resting in bed. SR on the monitor, HR in the 70's. Right femoral site C.D.I. No bleeding or hematoma noted at this time. Positive pulses. BP 92/60. Raisa Ca NP made aware and instructed to hold Coreg and
Lisinopril--see MAR. Pt reports dizziness when first getting up. Instructed pt to sit on the side of the bed before ambulating and to call RN for assistance if needed. pt was able to ambulate to bathroom safely. BP now 100/64. Call castro within reach.
--- NOTE | 2025-03-11 23:33 | PTCARENOTE ---
Pt called nursing to room after getting washed up by the sink to replace monitor electrodes and get new socks. Pt reported feeling good after getting cleaned up.
Once in bed pt c/o not being able to bring up any secretions with his cough. Pt reports usually after 2 days of no smoking he has a productive cough.
Pt then expressed concerns he could be developing pneumonia. Pt states 'every time I'm in the hospital I get it, you can check my records. ' I don't want to stay I want to be discharged but maybe they can give me a handful of abx to take home with
me since I don't have a family physician.' Lungs assessed diminished throughout with exp wheeze. rsp called for prn neb tx. Pt also given IS and encouraged to do Q1hr. Pt reports he does his IS at home daily.
[2025-03-12] VITALS (11 sets, daily range): BP systolic 79–123; BP diastolic 49–84; BMI 25.7
[2025-03-12] MEDS: DUONEB 3 ML INH (04:14)
[2025-03-12 05:26] LABS: Hematocrit 40.4 % (39.0-52.0); Hemoglobin 14.1 g/dL (13.0-18.0); Mean Corp Hgb Conc. 34.9 g/dL (33.0-37.0); Mean Corpuscular Volume 94.6 fL (80.0-94.0); Mean Platelet Volume 11.6 fL (7.4-10.4); Platelet Count 166 10^3/uL (130-400); Red Blood Cell Count 4.27 10^6/uL (4.70-6.10); Red Cell Dist. Width 13.2 % (11.5-14.5); White Blood Cell Count 5.2 10^3/uL (4.8-10.8)
[2025-03-12 05:53] LABS: Blood Urea Nitrogen 21 mg/dl (9-20); Calcium 9.7 mg/dl (8.4-10.2); Carbon Dioxide 28 mmol/L (22-30); Chloride 105 mmol/L (98-107); Estimated Creatinine Clearance 76 ml/min; Glucose 95 mg/dl (70-99); Potassium 4.2 mmol/L (3.5-5.1); Sodium 139 mmol/L (135-145); eGFR > 60.00
[2025-03-12] MEDS: SYMBICORT 160/4.5 MCG INHALER 2 PUFF INH (08:14)
[2025-03-12] MEDS: PLAVIX 75 MG PO (08:38)
[2025-03-12] MEDS: LOW STRENGTH ASPIRIN 81 MG PO (08:38)
[2025-03-12] MEDS: NICODERM TRANSDERMAL 14 MG TRANSDERM (08:38)
--- NOTE | 2025-03-12 08:41 | W.PN.HOSP.TC ---
Today's Communication/Plan
-
IV fluid bolus
Assessment / Plan
Assessment / Plan
General: No Apparent Distress, Comfortable and Conversant
HEENT: NormoCephalic, Moist mucous membranes, Atraumatic
Respiratory: Clear and Non Labored Respirations
Cardiac: S1/S2 and Regular Rhythm; No Rub or Gallop
GI: Soft, Non Tender, Non Distended and Normal Bowel Sounds
Musculoskeletal: No Edema, no deformity
Skin: Warm and dry
: NO [place]
Neuro: Awake, Alert, Nonfocal/grossly intact
Psych: Calm and Intact Judgment/Insight
Hypotension -asymptomatic. Systolic blood pressure 89 this morning. Confirmed in both arms. Has not received any meds so far today. Give IV fluid bolus. Hold parameters for meds. Stop IV Lasix. Was on diltiazem prior to admission,
discontinued.
ACS/CAD -
- Significant CAD history with multiple cardiac bypass procedures and PCI complicated by thromboses
- Continue anticoagulation with IV heparin and DAPT for now
- Echo shows severely reduced ejection fraction of 20% with severe global hypokinesis
Cardiac catheterization performed March 11 showing widely patent free radial to LAD graft, nonobstructive disease in the [place] RCA and circumflex arteries, branch vessel obstructive disease on diagonal branch which fills retrograde from the patent
radial to LAD graft. Cardiology recommends aggressive medical management, lifestyle changes, smoking cessation, compliance with home medications. Discussed with Dr. Smith.
Chronic HFrEF:
- Echocardiogram here shows EF 15-20%, severe global hypokinesis, stage II diastolic dysfunction, moderate MR.
- Continue beta-blockade with carvedilol 3.125 mg p.o. twice daily
- Afterload reduction with lisinopril 2.5 mg p.o. twice daily
- Spironolactone dose reduced to 12.5 mg daily
Psoriatic arthritis:
- With chronic pain treated most recently with methadone and gabapentin
- Patient titrated himself off methadone recently with subsequent development of diarrhea, relieved with loperamide which we will continue
- Continue gabapentin 800 mg 3 times daily which is a significantly high dose, however patient says he actually takes 800 mg 4 times a day at home
History of multiple DVTs:
- Uses Xarelto at home but not compliant
- Patient also has history of multiple thromboses in his coronary grafts
- Xarelto resumed.
COPD without exacerbation
- DuoNebs and oxygen as needed
- Med rec will need to be clarified to the patient's correct home medications can be continued
- Nicotine patch provided, encourage smoking cessation
Tobacco dependence -cessation advised multiple times.
Full code
Dispo -potential discharge if blood pressure improves today.
Anticipated Discharge: Today
Subjective/Interval History
-
Date of Service: March 12, 2025
Patient seen and examined. No complaints.
Objective Data
-
Labs:
Laboratory Results
03/12/25
04:43
WBC 5.2
Hgb 14.1
Hct 40.4
Plt Count 166
Sodium 139
Potassium 4.2
Chloride 105
Carbon Dioxide 28
BUN 21 H
Creatinine 1.0
Glucose 95
Calcium 9.7
Vital Signs:
Vital Signs
Temp Pulse Resp BP Pulse Ox
97.9 F 84 14 108/70 97
03/12/25 08:03 03/12/25 08:19 03/12/25 08:19 03/12/25 04:28 03/12/25 08:19
I&O
03/11/25 03/12/25 03/13/25
06:59 06:59 06:59
Intake Total 1708.4 / 1708.4 360 / 360
Output Total 1125 / 1125 300 / 300
Balance 583.4 / 583.4 60 / 60
Review of Systems
-
History Source: Patient
All other systems: Reviewed and negative
[2025-03-12] MEDS: XARELTO 10 MG PO (08:42)
[2025-03-12] MEDS: NSS 250 IV (08:51)
--- NOTE | 2025-03-12 09:35 | W.PN.CARDCBS ---
Addendum entered and electronically signed by Thaddeus Mason DO 03/12/25 10:35:
I saw and examined the patient.
The Staining Machine Operator's note was reviewed and I agree with the note.
Comment:
Plan:
Cont Plavix and Xarelto as per IC
Reviewed cath with pt and and with family on phone.
Cont Coreg but hold Lisinopril and aldactone with diarrhea and hypotension.
Would keep IVF hydration low volume with his significant cardiomyopathy.
Can slowly bring back GDMT meds including Lisinopril and aldactone as outpt as bp will allow
Cardiac rehab
Could be considered for eventual ICD given CM.
Pt and family want to follow up with [facility]
Possible d/c in the next 24 hrs.
Original Note:
Today's Communication / Plan
-
continue plavix, xarelto
lipitor 80mg QPM
coreg 3.125mg BID. hold lisinopril/aldactone for now
IVF bolus. follow BPs. avoid aggressive fluid resusc given marked CM
follow up with [facility] as requested
cardiac rehab
ambulate. possible DC later today vs in AM
discuss ICD as OP for CM
Impression / Plan
-
Impression:
Presentation with CP
NSTEMI
History of coronary artery bypass surgery in 2011 at [facility] MG to LAD and vein to diagonal both known to be occluded
Redo coronary artery bypass surgery 2012 at [facility] with vein graft to LAD
2016 cardiac catheterization demonstrating heavy clot burden with that vein graft to LAD and failed attempted intervention to the MG graft
Redo redo coronary artery bypass surgery off-pump with the left radial graft to the LAD distal to the other prior grafts [place] [address] Jean
Medical noncompliance
Ischemic cardiomyopathy
Tobacco use
Apparent hypercoagulable disorder with lower and upper extremity thrombus�DVT on chronic oral anticoagulation
Noncompliance with oral anticoagulation
Hypertension
Echo 03/10/2025: EF 15 to 20%, severe global hypokinesis with akinesis of apex and distal dimas, stage II diastolic dysfunction, moderately dilated LA, moderate MR, trace TR, trace AZ
Recommendations:
- Presented with chest pain and ruled in for NSTEMI with peak troponin of 0.042
- He has a history of ischemic cardiomyopathy, with new worsening in EF from 30% to 15 to 20%.
- Cardiac catheterization 03/11/25 with branch vessel obstructive disease in diagonal branch which fills retrograde from patent radial to LAD graft, plan to treat medically as PCI felt to be challenging and high risk for injury of graft to LAD.
Reviewed with patient 03/12/2025
- Plan to continue Xarelto 20 mg every afternoon (for LV thrombus prophylaxis) and Plavix 75 mg daily. Confirmed with ATC that this was regimen he was on prior to admission
- Groin site stable, soft, nontender to palpation
- LDL 149. Continue statin, transition from simvastatin which she was on as an outpatient to Lipitor 80 mg p.o. every afternoon
- Blood pressures noted to be low this morning, however patient is asymptomatic. IVF ordered by primary service. Would avoid aggressive fluid hydration given markedly reduced EF. Would attempt to continue Coreg. Lisinopril and Aldactone both
with hold parameters in place at this time. Would not be a candidate for Arni at present given hypotension.
- He was previously on Suboxone, however stopped this medicine several weeks ago. He reports some diarrhea as a result. Continue to monitor for withdrawal symptoms
- He and family wish to follow-up with [facility] upon discharge, which we will arrange
- Encouraged ambulation. If blood pressures improve, would plan for discharge later today
- Encouraged smoking cessation
- Cardiac rehab
- BMP in 1 week upon discharge
- will need to discuss ICD with patient as OP
- Discussed with nursing
Progress Note - Racing Board Marker
Subjective
Date of Service: March 12, 2025
Denies chest pain, shortness of breath, lightheadedness or dizziness
Objective
Labs:
03/12/25 04:43
03/12/25 04:43
Labs
Hgb 14.1 g/dL (13.0-18.0) 03/12/25 04:43
Hct 40.4 % (39.0-52.0) 03/12/25 04:43
Plt Count 166 10^3/uL (130-400) 03/12/25 04:43
PT 13.2 Sec (11.4-14.6) 03/10/25 00:49
INR 0.97 03/10/25 00:49
APTT 71.2 Sec (23.4-35.0) H 03/11/25 13:08
Sodium 139 mmol/L (135-145) 03/12/25 04:43
Potassium 4.2 mmol/L (3.5-5.1) 03/12/25 04:43
BUN 21 mg/dl (9-20) H 03/12/25 04:43
Creatinine 1.0 mg/dL (0.7-1.3) 03/12/25 04:43
Glucose 95 mg/dl (70-99) 03/12/25 04:43
Troponins
03/10/25 03/10/25 03/10/25
00:49 03:34 04:46
Troponin I 0.041 H* Cancelled 0.042 H*
03/10/25 03/10/25
06:45 08:45
Troponin I Cancelled 0.036 H*
Vital Signs and I&O:
Vital Signs
Temp Pulse Resp BP Pulse Ox
97.9 F 84 14 108/70 97
03/12/25 08:03 03/12/25 08:19 03/12/25 08:19 03/12/25 04:28 03/12/25 08:19
Vital Signs
Temp Pulse Resp BP Pulse Ox
97.9 F 84 14 108/70 97
03/12/25 08:03 03/12/25 08:19 03/12/25 08:19 03/12/25 04:28 03/12/25 08:19
Intake & Output
03/10/25 03/11/25 03/12/25 03/13/25
07:59 07:59 07:59 07:59
Intake Total 1708.4 / 1708.4 360 / 360 250 / 250
Output Total 1125 / 1125 300 / 300
Balance 583.4 / 583.4 60 / 60 250 / 250
Physical Exam
Physical Exam
GEN: No distress, awake, alert, oriented x3
HEENT: supple, anicteric, mmm, eomi
LUNGS: CTA B/L, no wheezes/rales
CV: Reg, S1/S2, no murmur
ABD: soft, BS+, NT/ND
EXT: No cyanosis, clubbing, edema
NEURO: Gross non-focal
SKIN: Warm, pink, dry. No rash. R groin site soft, NTTP, c/d/i
[2025-03-12] MEDS: LASIX IV (10:05)
[2025-03-12] MEDS: ALDACTONE PO (10:05)
[2025-03-12] MEDS: COREG 3.125 MG PO (10:06)
[2025-03-12] MEDS: ZESTRIL PO (10:06)
[2025-03-12] MEDS: NEURONTIN 800 MG PO ×2 (10:12→15:07)
--- NOTE | 2025-03-12 11:09 | PTCARENOTE ---
Assumed care at 0700, patient asleep arouses easily. NSR with frequent PAC/PVC, irregular, BP 89/63 in the left and 93/74 in the right. NSS 250 cc bolus given, BP post infusion 121/78. Patient asymptotic. Right groin cath site CDI. Nicotine patch
right shoulder. Call castro in reach
--- NOTE | 2025-03-12 11:36 | CM ---
Chart reviewed. Patient with low BP getting IVF bolus. Patient is independent of ADLS, lives alone in a apartment, [address], 0 DME. Plan is for the patient to return home. CM to follow
--- NOTE | 2025-03-12 14:35 | W.DS.TRANS ---
DC Summary - Senior Engineering Associate
-
Discharge Instructions:
Sleep Apnea Risk Intermediate
Discharge Diagnosis/Procedures Coronary artery disease, cardiac catheterization
Diet Low Cholesterol
Activity As tolerated
Driving Restrictions No driving for 24 hours
Bathing Restrictions None
Blood Work BMP in 1 week
Other Services Cardiac Rehab
Specialty Instructions Weigh Daily
Instructions:
Stand-Alone Forms: DC Instructions- Cath/EP Lab
Changes to Home Medications: Yes
Discharge Medications:
DC Medications w/original date entered in [facility]
atorvastatin 80 mg tablet 80 mg PO QPM ##30 05/31/16
carvedilol 3.125 mg tablet 3.125 mg PO BID ##60 05/31/16
clopidogrel 75 mg tablet 75 mg PO DAILY ##30 05/31/16
budesonide 160 mcg-glycopyr 9 mcg-formot 4.8 mcg/actuation HFA inhaler (Breztri Aerosphere) 2 inh inhalation BID 03/10/25
gabapentin 800 mg tablet 800 mg PO TID #90 tabs 03/12/25
nitroglycerin 0.4 mg sublingual tablet 0.4 mg sublingual [id number] PRN chest pain #30 tabs 03/12/25
rivaroxaban 20 mg tablet (Xarelto) 20 mg PO DAILY #30 tabs 03/12/25
Home Medication Changes
Rivaroxaban dose changed to 20mg daily.
Pending Results: No
--- NOTE | 2025-03-12 15:33 | PTCARENOTE ---
Patient discharged to home. Instructions reviewed with patient, he verbalized understanding. Prescription for BMP given to patient. IV and telemetry removed, VSS, escorted to main lobby
== END 2025-03-12 15:45 | disposition home or self-care (01) ==
LOC: SDS 03:20
PROVIDERS: Internal Medicine; Nurse Practitioner; ATTENDING PHYSICIAN Hospitalist; CONSULT PHYSICIAN Internal Medicine Cardiovascular Disease; EMERGENCY PHYSICIAN Student in an Organized Health Care Education/Training Program
DX: I21.4 Non-ST elevation (NSTEMI) myocardial infarction (principal); I25.10 Atherosclerotic heart disease of native coronary artery without angina pectoris; I11.0 Hypertensive heart disease with heart failure; I25.2 Old myocardial infarction; I25.5 Ischemic cardiomyopathy; I50.22 Chronic systolic (congestive) heart failure; I95.9 Hypotension, unspecified; F17.210 Nicotine dependence, cigarettes, uncomplicated; J44.9 Chronic obstructive pulmonary disease, unspecified; I34.0 Nonrheumatic mitral (valve) insufficiency; E78.00 Pure hypercholesterolemia, unspecified; L40.50 Arthropathic psoriasis, unspecified; G89.29 Other chronic pain; F11.20 Opioid dependence, uncomplicated; Z79.01 Long term (current) use of anticoagulants; Z79.02 Long term (current) use of antithrombotics/antiplatelets; Z79.899 Other long term (current) drug therapy; Z86.711 Personal history of pulmonary embolism; Z86.718 Personal history of other venous thrombosis and embolism; Z91.148 Patient's other noncompliance with medication regimen for other reason; Z95.1 Presence of aortocoronary bypass graft
CPT/HCPCS: 71046; 80048; 80053; 80061; 83036; 83690; 83880; 84443; 84484; 85025; 85027; 85379; 85610; 85730; 87070; 93005; 93306; 93459; 93567; 94640; 96365; 96366; 99291; 99406; C1894; Q9950; Q9967

== ENCOUNTER 2025-03-20 05:00 | Observation (INO) | payer MEDICARE, SELFPAY ==
[2025-03-19 22:22] VITALS: BMI 27.0
[2025-03-19 22:26] VITALS: BP 124/74
[2025-03-19 23:01] LABS: ALT (SGPT) 13 U/L (0-50); AST (SGOT) 18 U/L (17-59); Albumin 4.4 g/dl (3.5-5.0); Alkaline Phosphatase 46 U/L (38-126); Blood Urea Nitrogen 16 mg/dl (9-20); Calcium 9.4 mg/dl (8.4-10.2); Carbon Dioxide 24 mmol/L (22-30); Chloride 112 mmol/L (98-107); Glucose 130 mg/dl (70-99); Potassium 4.4 mmol/L (3.5-5.1); Sodium 140 mmol/L (135-145); Total Protein 6.9 g/dl (6.3-8.2); eGFR > 60.00
[2025-03-19 23:11] LABS: Troponin I 0.027 ng/ml
[2025-03-19 23:43] VITALS: BP 102/78
[2025-03-20] VITALS: BP 107/76
[2025-03-20 00:03] LABS: Hematocrit 36.2 % (39.0-52.0); Hemoglobin 12.7 g/dL (13.0-18.0); Mean Corp Hgb Conc. 35.1 g/dL (33.0-37.0); Mean Corpuscular Volume 95.8 fL (80.0-94.0); Nucleated Red Blood Cells % 0 % (-); Platelet Count 154 10^3/uL (130-400); Red Cell Dist. Width 12.9 % (11.5-14.5)
--- NOTE | 2025-03-20 00:24 | ED.GENMED ---
History of Present Illness
General
Chief Complaint: Chest Pain
Source: patient
Exam Limitations: none
Time Seen by Provider: 03/19/25 23:47
Nursing documentation reviewed up to this point in time: agreed with
History of Present Illness
History of Present Illness:
Note:
CHIEF COMPLAINT(S)
Hypotension, transient chest pain
HISTORY OF PRESENT ILLNESS
The patient is a 64-year-old male with a significant history of heart failure, CAD s/p CABG, depression, psoriasis, tobacco use disorder, presenting today with concerns of hypotension. Earlier today, around 8:00 AM, the patient visited his primary
care physician, who noted hypotension with blood pressure measurements around 80/60 mmHg, which is consistent with his morning readings [id number] surgery. The patient has previously undergone open-heart surgery in 2016, and reports a left
ventricular ejection fraction (LVEF) of 15 to 20%. He denies any current chest pain but he reports that he had chest pain earlier which he attributes to stress. The patient reports compliance with a medication regimen that includes a blood pressure
medication, but he questions its necessity due to persistent low blood pressure readings. He is also taking Isosorbide dinitrate for chest pain relief, which he has not needed today, marking improvement over previous days when he required it daily
for stress-induced pain. He also takes Rivaroxaban for anticoagulation and medication for cholesterol management. The patient denies any swelling in his legs. He had an open-heart surgery in 2016 and does not have a pacemaker. He will follow up with
his head of loss prevention next Tuesday. He denies any fevers or chills, abdominal pain, nausea, vomiting.
CHRONIC MEDICAL CONDITIONS SIGNIFICANTLY AFFECTING CARE
Chronic Heart Failure with reduced ejection fraction (EF 15-20%).
PHYSICAL EXAM
- Nursing notes reviewed and vital signs reviewed
General: Patient is well appearing and in no acute distress; non-toxic
Skin: Warm and dry, no rashes or lesions
Head: Normocephalic, atraumatic
Eyes: Sclera non-icteric. EOMs intact.
Cardiac: Regular rate, and rhythm, no murmurs, no tenderness to palpation of the external chest wall
Peripheral Vascular: No lower extremity swelling or edema
Pulm: Normal respiratory effort, no wheezes, rales, or rhonchi
Abdomen: No abdominal tenderness to palpation
Neuro: CN II-XII intact, no focal neurologic deficits.
Psychiatric: Appropriate mood and affect.
PROBLEM LIST
Acute:
- Hypotension
Chronic:
- Chronic heart failure with reduced ejection fraction
PLAN
- Obtain a chest X-ray
- Perform a blood test to assess current status
- ecg
- troponin
DIFFERENTIAL DIAGNOSIS
The Differential Diagnosis includes, in no particular order and is not limited to:
- Medication-induced hypotension
- ACS
- Heart failure decompensation
- Dehydration
- Cardiogenic shock
- Myocardial infarction
- Arrhythmia
- Pulmonary embolism
- Valvular heart disease
- Orthostatic hypotension
- Acute kidney injury
CHART REVIEW
- Reviewed discharge summary from 03/13/2025 patient seen for exertional chest pain NSTEMI or chest pain in the hospital he underwent cardiac catheterization with findings of stable CAD and was recommended for aggressive medical therapy
MDM/DISPOSITION
The patient is a 64-year-old male with a significant history of heart failure, CAD s/p CABG, depression, psoriasis, tobacco use disorder, presenting today with concerns of hypotension. His pressure was in the 80s systolically. Advised patient to
go to the ER. Patient also reports to the ER staff that he had chest pain earlier in the day but he is currently chest pain-free. Physical exam is well-appearing in no acute distress. He is mildly hypotensive. His initial troponin is normal.
Reviewed case with ER attending physician. In light of recent hospitalization for acute coronary syndrome and earlier episode of pain, will repeat Trope. Troponin did rise however patient remains chest pain-free and the ECG remains unchanged.
Reviewed case with ER attending who saw patient before last hospitalization. Plan will be to initiate heparin and refer to admission. I made Dr. Wendi Noble, [facility] head of loss prevention carbon paper coating machine setter aware of case and treatment plan.
Past History
Past History
ED Past Medical History: CAD, CHF and DE
ED Past Surgical History: Cardiac (harvested radial artery for CABG)
Social History
Tobacco: Former smoker
Alcohol: None
Drug: None
Personal: Other (Noncontributory)
Living: with family
Employment: Employed
Family History
Family History: Other
Review of Systems
Review of Systems
All Other Systems: ROS reviewed and negative except as documented in HPI and ROS
Phy Exam
Physical Exam
Physical Exam:
see hpi
Scores
Heart Score for Chest Pain Patients
STEMI patient?: No
History: Moderately Suspicious
ECG: Normal
Age: >/= 65 years
Risk Factors: >/= 3 Risk Factors or History of CAD
Troponin: >1 - <3 x Normal Limit
Heart Score for Chest Pain Patients: 6
Heart Score Risk: 20.3% MACE over next 6 weeks
Course
Orders/Labs/Results
Orders:
Orders
03/19/25 22:23
EKG [Electrocardiogram (*1)] Urgent
Reason for Study: Chest Pain
EKG- Treatment ONCE
03/19/25 22:40
CMP [Comprehensive Metabolic Panel] Urgent
Pro-BNP [NT-proBNP] Urgent
Troponin I Urgent
03/19/25 23:57
Complete Blood Count/With Diff Urgent
03/20/25 00:12
CR Chest - 2 Views Urgent
Comment:
Reason For Exam: chest pain, hx of heart failure
03/20/25 01:30
Electrocardiogram (*1) Urgent
Reason for Study: Chest Pain
03/20/25 01:37
Troponin I Urgent
03/20/25 03:22
Heparin 4,000 units IV NOW STA
Pharmacy Request to Place See Dose Instructions PO NOW STA
Discontinue all Active Warfarin orders?: Yes
03/20/25 03:30
Heparin 76513 Units/250 ml 25,000 units in 250 ml IV PER PROTOCOL
Weight to be used for heparin protocol in kilograms (kg):: 85.5
Protocol:: Cardiac Tx/Acute Coronary
PTT Goal Range to be used:: PTT 73 to 111 seconds
Order type:: Initial
INITIAL Infusion Dose (UNITS/KG/hr) & then follow protocol:: 12 units/kg/hr
Infusion Dose in UNITS/hr & then follow protocol (UNITS/hr):: 1,000
INFUSION RATE in mL/hr & then follow protocol (mL/hr):: 10
PTT less than or equal to 64 seconds:: Increase rate by 200 units/hr (+ 2 mL/hr)
PTT 64.1 to 72.9 seconds:: Increase rate by 100 units/hr (+ 1 mL/hr)
PTT 73 to 111 seconds:: Target Range. No change in rate.
PTT 111.1 to 130.9 seconds:: Decrease rate by 100 units/hr (- 1 mL/hr)
PTT 131 to 199.9 seconds:: HOLD for 1 hr. Then decrease rate by 200 units/hr (- 2 mL/hr)
PTT greater than or equal to 200 seconds:: HOLD for 2 hrs & Notify Provider. Then decrease by 200 units/hr (-
2 mL/hr)
Lab follow-up:: Each change, PTT q6h until 2 consecutive are therapeutic. Then PTT
daily.
03/20/25 03:34
PTT Urgent
Comment: Obtain baseline before beginning heparin infusion if not already collected
03/20/25 04:[address] See Dose Instructions IV DIRECTED
03/20/25 04:45
Admit/Transfer Patient As Directed
Co-Sign Provider:
Level of Care: Observation services
Assign to:: Telemetry
Physician / Group: Naseem
Diagnosis: Hypotension
Reason for Telemetry: Chest Pain syndromes
Date to Stop Telemetry: 03/22/25
Time to Stop Telemetry: 11:00
PRN Pain Medication Management As Directed
May give lesser potent ordered pain med per pt: Yes
preference::
Protocol:: Medication orders for pain may be administered in a
manner that supports deferring to patient preference
when the pt is:
- Requesting an ordered lesser potent pain medication.
Least to most potent pain medications are defined
as: acetaminophen < NSAID < tramadol < opioids
(morphine, oxycodone, hydromorphone).
- Requesting a lesser dose of the same medication IF
ORDERED.
- Requesting a less intrusive route of administration
if both routes are prescribed by the provider (PO <
IV).
03/20/25 04:48
Code Status As Directed
Resuscitation Status: Full Code
03/20/25 06:00
EKG [Electrocardiogram (*1)] IN AM
Reason for Study: Chest Pain
NPO
Allow oral meds: Yes
Allow clear liquids: Sips of Clears
Basic Metabolic Panel IN AM
Acetaminophen [Tylenol] 650 mg PO Q4HPRN PRN
Morphine Sulfate 2 mg IV Q4HPRN PRN
Nitroglycerin Sublingual [Nitrostat (Sublingual)] 0.4 mg SL [id number] PRN chest pain
03/20/25 06:00
CARDIOLOGY CONSULT Routine
Consulting Provider: Reagan Noble
Was physician already notified: Yes
Reason for consult: CAD
Activity As Directed
Activity Level: Ambulate
With Assistance
Bladder Scan As Directed
Follow Bladder Retention/Intermittent Cath Algorithm?: Yes
PRN if no void in __ hours: 6
Frequency: Per Retention Algorithm
If Bladder Scan Result >: 400
then:: Straight cath
EKG with chest pain [ECG as needed] As Directed
ECG as needed for:: Chest Pain
I/O [Intake/ Output] As Directed
Frequency: Per unit guidelines
Straight Cath As Directed
Frequency: Per Retention Algorithm
Additional Instructions: straight cath as needed per acute urinary retention algorithm for 24 hrs
Additional Instructions: for bladder scan greater than 400 mL
Vital Signs As Directed
Frequency: Per unit guidelines
Weight As Directed
Frequency: Daily
Oxygen Therapy [O2 Therapy] [RESP] Routine
Titrate/Wean O2 to maintain O2 sat greater than (%): 94
03/20/25 06:39
Complete Blood Count/No Diff IN AM
Troponin I Q6H
03/20/25 08:00
Budesonide/Formoterol 160/4.5 [Symbicort 160/4.5 Mcg Inhaler] 2 puff INH R BID
Carvedilol [Coreg] 3.125 mg PO BID
Clopidogrel Bisulfate [Plavix] 75 mg PO DAILY
Gabapentin [Neurontin] 600 mg PO TID
Rivaroxaban [Xarelto] 20 mg PO DAILY
03/20/25 12:00
Troponin I Q6H
03/20/25 18:00
Troponin I Q6H
Atorvastatin [Lipitor] 80 mg PO QPM
03/22/25 11:00
DC Protocol for Telemetry ONCE
Abnormal Lab Results
03/19/25 03/19/25 03/20/25
22:40 23:57 01:37
RBC 3.78 L 10^6/uL
(4.70-6.10)
Hgb 12.7 L g/dL
(13.0-18.0)
Hct 36.2 L %
(39.0-52.0)
MCV 95.8 H fL
(80.0-94.0)
MCH 33.6 H pg
(27.0-31.0)
MPV 11.6 H fL
(7.4-10.4)
Monocytes % 9.5 H %
(1.7-9.3)
Chloride 112 H mmol/L
(98-107)
Glucose 130 H mg/dl
(70-99)
Troponin I 0.037 H* D ng/ml
03/19/25 23:57
03/19/25 22:40
Vital Signs
Initial and Last Documented VS:
Initial Vital Signs
Temp Pulse Resp BP Pulse Ox
98.4 F 96 15 124/74 98
03/19/25 22:26 03/19/25 22:26 03/19/25 22:26 03/19/25 22:26 03/19/25 22:26
Last Documented Vital Signs
Temp Pulse Resp BP Pulse Ox
97.4 F 74 16 110/76 96
03/20/25 06:33 03/20/25 06:33 03/20/25 06:33 03/20/25 06:33 03/20/25 06:33
*Pulse Oximetry
SaO2: 98
Oxygen Mode of Delivery: Room air
Patient hypoxic: no
*Critical Care Note
Total Time (30-74mins, 75-104mins- exclusive of procedures): Not Applicable
ED Attending Note
-
Portions of this chart may have been created with voice recognition software.� Occasional wrong word or��sound alike� substitutions may have occurred due to the inherent limitations of voice recognition software.
Discharge Plan
Departure
Patient Disposition: Admit
Date of Disposition: 03/20/25
Time of Disposition: 03:33
Admit to: Med/Surg
Presentation/result/management discussed w/ accepting MD/DO: Hospitalist
Patient with high blood pressure during this ER visit?: No
Condition: Fair
Discharge Problem:
Non-ST elevation DE (NSTEMI)
Interventions
Interventions:
*Risk Screen - Suicide Last Done: 03/20/25 01:56
*General Assessment Last Done: 03/19/25 22:26
*Neglect/Abuse Screening Last Done: 03/19/25 22:26
*ED- Fall Risk Assessment Last Done: 03/20/25 01:23
*ED COVID-19 Vaccine History Last Done: 03/20/25 06:02
*Nursing Disposition Last Done: 03/20/25 06:02
ED- Cardiac Assessment Last Done: 03/20/25 00:03
Discharge Date and Time
Discharge Date/Time: 03/20/25 06:03
[2025-03-20 02:29] LABS: Troponin I 0.037 ng/ml
[2025-03-20 03:18] VITALS: BP 111/72
[2025-03-20] MEDS: HEPARIN 4000 UNITS IV (03:58)
[2025-03-20 04:00] VITALS: BP 103/80
[2025-03-20 04:00] LABS: APTT 31.5 Sec (23.4-35.0)
--- NOTE | 2025-03-20 04:50 | HPS.HSE ---
Family Physician
-
Family Physician: Maria Luisa Black
Chief Complaint
-
Low BP
History of Present Illness
Patient is a 64y M with PMH significant for ASCVD, labile BP and CHFrEF who presents to ED for evaluation of low BP. Patient tells me that he was seen by a new PCP Tuesday. His BP was low in the office (80s systolic) and he was advised to
present immediately to the ED. Patient states that he had things to do and he drove to [place] and went about his day. He denies any symptoms of lightheadedness, dizziness, chest pain, dyspnea, etc.
He states that 'people were bugging me to come in' so he finally presented to the ED for evaluation.
At the time of my examination, patient is resting comfortably. He has no complaints.
He was recently hospitalized 03/10 - 03/12 secondary to chest pain/ ACS. He underwent cath on 03/11 which showed stable CAD. No stents / interventions performed.
He states that he has been compliant with his medications since his recent hospital discharge.
Medical History
Past Medical History
Past Medical History: Reports CAD (Status post [place], status post on multiple CABG surgeries), COPD and Hypercholesterolemia
Additional Past Medical History:
Psoriasis
Past Surgical History: Reports Cardiac and Orthopedic (Multiple spinal surgeries including the cervical spine as well as the lumbar spine)
Social History
Tobacco: Smoker
Alcohol: None
Drug: None
Personal: Single
Employment: Retired
Family History
Family History: Not pertinent
Allergies / Home Medications
Allergies reflects when Allergies were last updated in [employer].
Home Medications with original date entered in [employer]
Allergy/Medication List:
Allergies
Allergy/AdvReac Type Severity Reaction Status Date / Time
Penicillins Allergy Anaphylaxis Verified 03/10/25 00:21
Home Medications
atorvastatin 80 mg tablet 80 mg PO QPM ##30 05/31/16
carvedilol 3.125 mg tablet 3.125 mg PO BID ##60 05/31/16
clopidogrel 75 mg tablet 75 mg PO DAILY ##30 05/31/16
budesonide 160 mcg-glycopyr 9 mcg-formot 4.8 mcg/actuation HFA inhaler (Breztri Aerosphere) 2 inh inhalation BID 03/10/25
gabapentin 800 mg tablet 800 mg PO TID #90 tabs 03/12/25
nitroglycerin 0.4 mg sublingual tablet 0.4 mg sublingual [id number] PRN chest pain #30 tabs 03/12/25
rivaroxaban 20 mg tablet (Xarelto) 20 mg PO DAILY #30 tabs 03/12/25
Review of Systems
-
History Source: Patient
A 12 point ROS was completed and negative except as noted: Yes
Constitutional: Denies Fever or Chills
Respiratory: Denies Cough or Trouble Breathing
Cardiac: Denies Chest Pain or Palpitations
Abdomen/GI: Denies Abdominal Pain, Nausea, Vomiting or Diarrhea
Musculoskeletal: Denies Joint Pain or Edema
Neurological: Denies Dizzy or Headache
Physical Exam
Vital Signs
Vital Signs
Temp Pulse Resp BP Pulse Ox
98.0 F 73 19 111/72 95
03/20/25 03:38 03/20/25 03:30 03/20/25 03:30 03/20/25 03:18 03/20/25 03:30
Physical Exam
General: Other (64y M in no distress.)
Respiratory: Clear; No Wheezes, Rales or Rhonchi
Cardiac: S1/S2 and Regular Rhythm; No Murmur
GI: Soft, Non Tender, Non Distended and Normal Bowel Sounds
Musculoskeletal: No Clubbing, No Cyanosis and No Edema
Neuro: AO x 3
Laboratory Results
-
03/19/25 23:57
03/19/25 22:40
Laboratory Results
APTT 31.5 Sec (23.4-35.0) 03/20/25 03:34
Total Bilirubin 0.6 mg/dl (0.2-1.3) 03/19/25 22:40
AST 18 U/L (17-59) 03/19/25 22:40
ALT 13 U/L (0-50) 03/19/25 22:40
Alkaline Phosphatase 46 U/L (38-126) 03/19/25 22:40
Troponin I 0.037 ng/ml H* D 03/20/25 01:37
Impression/Plan
-
A/P: Patient is a 64y M with PMH significant for ASCVD, CHF and labile BP who was referred to the ED early this AM for low BP noted in his PCP office.
Hypotension
- Observe overnight for further evaluation and treatment.
- BP is stable at present. Asymptomatic.
- Patient states that his BP 'runs low' in the mornings.
- Monitor and adjust meds as needed for normotension.
ASCVD
Abnormal Troponin
- Patient denies any symptoms to me. EKG is unchanged from prior.
- Troponin 0.027 to 0.037 here in the ED. (Peak last admission at 0.042).
- Would hold on heparin infusion as he is completely asymptomatic.
- Continue current CV med regimen including Plavix and Xarelto.
- Cardiology consulted (notified by ED of case).
Chronic HFrEF
- Stable. No gross volume overload at present.
- EF = 15-20%.
- Not on chronic diuretic therapy.
- Follow I/Os, daily weights, etc.
Chronic Pain Syndrome
- Previously on methadone but tapered himself off.
- Decrease gabapentin dose slightly (600mg TID) to try and improve baseline hypotension.
COPD without Acute Exacerbation
- Stable. Continue inhaled medications.
- Encourage smoking cessation.
DVT Prophylaxis
History of Prior DVTs
- On Xarelto
Code Status: Full
[2025-03-20 06:33] VITALS: BP 110/76; BMI 25.9
[2025-03-20 06:49] LABS: Hematocrit 39.6 % (39.0-52.0); Hemoglobin 13.5 g/dL (13.0-18.0); Mean Corp Hgb Conc. 34.1 g/dL (33.0-37.0); Mean Corpuscular Volume 94.7 fL (80.0-94.0); Platelet Count 152 10^3/uL (130-400); Red Cell Dist. Width 13.0 % (11.5-14.5)
[2025-03-20] MEDS: SYMBICORT 160/4.5 MCG INHALER 2 PUFF INH (07:13)
[2025-03-20] MEDS: SPIRIVA RESPIMAT 2.5 MCG 2 PUFF INH (07:14)
[2025-03-20 07:28] LABS: Troponin I 0.022 ng/ml
--- NOTE | 2025-03-20 07:48 | CON.CAR ---
Addendum entered and electronically signed by Abdirizak Carrillo MD 03/20/25 16:33:
I saw and examined the patient on morning rounds.
The [employer]'s note was reviewed and I agree with the note.
Comment: Briefly, 64-year-old man past medical history of ICM with severely reduced LV systolic function following 3 prior CABG procedures who was sent from his primary care physician's office with hypotension.
Initial troponin was within normal limits and then drifted up to 0.037 before downtrending
Patient tells me he was never experiencing symptoms including no chest discomfort and was resting comfortably at the time of my evaluation
Underwent left heart catheterization 02/2025 showing coronary artery disease involving capitan grande band vessels as well as bypass grafts however this was not amenable to percutaneous intervention and the recommendation was for medical management going forward
Recommend continuing aspirin/Plavix, high intensity statin and beta-jerome
In regards to his hypotension, blood pressure was reportedly 80s over 60s and patient was asymptomatic. Suspect that this is his near his baseline blood pressure due to severe LV dysfunction.
Would continue Coreg, but hold off on adding additional GDMT at this time
Would benefit from cardiac rehab as planned as well as smoking cessation
Stable for discharge from my perspective
He should follow-up with his primary biology intern Dr. Stone
Original Note:
Consultation
Consultation Request
Date/Time Consultation Requested: 03/20/2025 at 0600
Date/Time Consultation Performed: 03/20/2025 at 0753
Requesting Provider: Dr. Espinosa
Performing Provider: Dr. Carrillo
Reason for Consultation: Chest pain, elevated Troponin
Medical History
-
History of Present Illness:
Patient came to [facility] ER last night with possible chest pain and hypotension and was admitted with an elevated Troponin and cardiology has been consulted. Patient with extremely complex medical history with 3 prior cardiac surgeries including initial
cardiac bypass at [facility] in 2011 with a MG to the LAD and a vein to the diagonal which both are known to be occluded. Subsequent second CABG in 2012 at [facility] where a GELA was taken down but felt not to be adequate and a
vein graft was placed to the LAD. In 2016 the SVG to the LAD was noted to have extremely high clot burden and stenosis with a long capitan grande band vessel occlusion and there was an attempted intervention on the MG to the LAD at that time which was
unsuccessful and patient was sent for a 3rd CAB[place] [address] Jean, there were significant adhesions and the left radial artery graft was placed off-pump from a virgin portion of the aorta down onto a site in the mid LAD distal to the prior
grafts. The patient is known to have significant capitan grande band diagonal disease as well. Patient was previously referred to [facility] cardiology for ICD, but never returned calls from our office to schedule appt. and patient has been following with
Chase at [facility], but was noncompliant with meds just prior to his last admission. Patient was admitted to [facility] 03/10/25 until 03/12/25 with chest pain and he ruled in for a NSTEMI at that time prompting cardiac cath with results as outlined
above. Patient was hypotensive that admission and GDMT was tailored down to Coreg 3.125 mg BID, he had previously been taking lisinopril, but this was stopped due to hypotension. Patient saw his new PCP in the office yesterday and his BP was 85/60
and he was referred to the ER, but he felt fine so he didn't go. Patient was able to drive hours away to [place] and completed previously planned errands without lightheadedness
[facility]:
Recent admission for NSTEMI 03/10/25 until 03/12/25
CAD
s/p CABG with MG to LAD and SVG to Diag (now known to be occluded) at [facility] 2011
s/p redo sternotomy and CABG with SVG to LAD 2012
s/p redo (3rd) sternotomy and CABG with off-pump left radial graft to the LAD distal to the other prior grafts 2015
s/p cardiac cath at [facility] with widely patent free radial to LAD, nonobstructive CAD in the capitan grande band RCA and Circ, branch vessel obstructive disease in the Diagonal branch that fills retrograde from the patent radial to LAD graft that is being
medically managed as any PCI attempt would be extremely challenging and associated with significant risk for injuring the graft to the LAD 03/11/25
Medical noncompliance
had stopped all meds for months prior to 02/2025 admission, but compliant as of 03/2025
Ischemic cardiomyopathy EF 15-20% by echo 03/10/25
Tobacco use
Apparent hypercoagulable disorder with h/o UE and LE DVT
Chronic Xarelto OAC for h/o DVT
h/o Hypertension
Past Medical History
Past Medical History: Other (in HPI)
Past Surgical History: Cardiac (CABG 2015) and Orthopedic
Social History
Tobacco: Smoker
Alcohol: None
Drug: None
Personal:
Living: With Family
Employment: Other
Family History
Family History: Reviewed & Not Pertinent
Allergies / Home Medications
Allergy/AdvReac Type Severity Reaction Status Date / Time
Penicillins Allergy Anaphylaxis Verified 03/10/25 00:21
�Medication �Instructions �Recorded �Confirmed �Type
atorvastatin 80 mg tablet 80 mg PO QPM ##30 05/31/16 03/20/25 Rx
carvedilol 3.125 mg tablet 3.125 mg PO BID ##60 05/31/16 03/20/25 Rx
clopidogrel 75 mg tablet 75 mg PO DAILY ##30 05/31/16 03/20/25 Rx
budesonide 160 mcg-glycopyr 9 2 inh inhalation BID 03/10/25 03/20/25 History
mcg-formot 4.8 mcg/actuation HFA
inhaler (Breztri Aerosphere)
gabapentin 800 mg tablet 800 mg PO TID #90 tabs 03/12/25 03/20/25 Rx
nitroglycerin 0.4 mg sublingual 0.4 mg sublingual [id number] PRN 03/12/25 03/20/25 Rx
tablet chest pain #30 tabs
rivaroxaban 20 mg tablet (Xarelto) 20 mg PO DAILY #30 tabs 03/12/25 03/20/25 Rx
Review of Systems
-
History Source: Patient
All other systems: Negative unless noted
Physical Exam
Vital Signs
Temp Pulse Resp BP Pulse Ox
97.4 F 85 15 110/76 95
03/20/25 06:33 03/20/25 07:20 03/20/25 07:20 03/20/25 06:33 03/20/25 07:20
GEN: NAD. AAOx3
HEENT: EOMI, MMM
LUNGS: RA. Clear anterolaterally without wheeze or rales
CV: SR on tele. Reg, S1/S2, no murmur
ABD: ND
EXT: No edema B/L LE
NEURO: Gross non-focal
SKIN: Warm, pink and dry. No rash.
Lab Results
03/20/25 06:39
Troponin I Cancelled 03/20/25 18:00
[id number] Pept 825 pg/ml 03/19/25 22:40
Impression / Plan
-
PCP: Dr. Black
Card: previously Dr. Stone and now asking to follow with Dr. Fernández
Impression:
Admitted with hypotension and chest pain, although he now denies chest pain, 03/19/25
Recent admission for NSTEMI 03/10/25 until 03/12/25
CAD
s/p CABG with MG to LAD and SVG to Diag (now known to be occluded) at [facility] 2011
s/p redo sternotomy and CABG with SVG to LAD 2012
s/p redo (3rd) sternotomy and CABG with off-pump left radial graft to the LAD distal to the other prior grafts 2015
s/p cardiac cath at [facility] with widely patent free radial to LAD, nonobstructive CAD in the capitan grande band RCA and Circ, branch vessel obstructive disease in the Diagonal branch that fills retrograde from the patent radial to LAD graft that is being
medically managed as any PCI attempt would be extremely challenging and associated with significant risk for injuring the graft to the LAD 03/11/25
Medical noncompliance
had stopped all meds for months prior to 02/2025 admission, but compliant as of 03/2025
Ischemic cardiomyopathy EF 15-20% by echo 03/10/25
Tobacco use
Apparent hypercoagulable disorder with h/o UE and LE DVT
Chronic Xarelto OAC for h/o DVT
h/o Hypertension
Echo 03/10/2025: EF 15 to 20%, severe global hypokinesis with akinesis of apex and distal dimas, stage II diastolic dysfunction, moderately dilated LA, moderate MR, trace TR, trace VA
Plan:
-Patient came to [facility] ER last night with possible chest pain and hypotension and was admitted with an elevated Troponin and cardiology has been consulted. Patient with extremely complex medical history with 3 prior cardiac surgeries including
initial cardiac bypass at [facility] in 2011 with a MG to the LAD and a vein to the diagonal which both are known to be occluded. Subsequent second CABG in 2012 at [facility] where a GELA was taken down but felt not to be adequate
and a vein graft was placed to the LAD. In 2015 the SVG to the LAD was noted to have extremely high clot burden and stenosis with a long capitan grande band vessel occlusion and there was an attempted intervention on the MG to the LAD at that time which was
unsuccessful and patient was sent for a 3rd CABG [place] [address] Jean, there were significant adhesions and the left radial artery graft was placed off-pump from a virgin portion of the aorta down onto a site in the mid LAD distal to the prior
grafts. The patient is known to have significant capitan grande band diagonal disease as well. Patient was previously referred to [facility] cardiology for ICD, but never returned calls from our office to schedule appt. and patient has been following with
Chase at [facility], but was noncompliant with meds just prior to his last admission. Patient was admitted to [facility] 03/10/25 until 03/12/25 with chest pain and he ruled in for a NSTEMI at that time prompting cardiac cath with results as outlined
above. Patient was hypotensive that admission and GDMT was tailored down to Coreg 3.125 mg BID, he had previously been taking lisinopril, but this was stopped due to hypotension. Patient saw his new PCP in the office yesterday and his BP was 85/60
and he was referred to the ER, but he felt fine so he didn't go. Patient was able to drive hours away to [place] and completed previously planned errands without lightheadedness
-All 3 ECGs from this admission were reviewed by me and look like SR without acute ST or T wave changes
-Initial troponin was 0.027 and then 0.037 and then 0.022. This will be managed as a nonischemic myocardial injury troponin elevation. Patient completely denies chest pain and says that his words were misconstrued on admission.
-Patient with known CAD which is extensive and outlined in detail above. Plan is for medical management and he will continue with his usual dose of Plavix. Patient is not on aspirin because he also requires Xarelto for history of DVT.
-Outpatient dose of Coreg 3.125 mg BID should be continued, BP has been stable this admission.
-I reviewed cardiac cath report and additional data from 03/11/2025 and the central aorta pressure was 121/73 and the NIBP was 114/72 suggesting that NIBP measurements are accurate. Patient reports similar hypotension with morning BP readings at
home, but denies ever feeling symptomatic. We discussed that if he were to start feeling symptomatic that we should further reduced or perhaps eliminate his Coreg dose and patient will continue to follow his BP and also log any symptoms should they
start to occur.
-Patient is scheduled to start with cardiac rehab in about 4 weeks, he is chosen to come to [facility]
-Patient asked questions about GDMT and timing of possible ICD, he previously was not interested in ICD but now is interested in ICD pending the outcome of his 90-day echo.
-Outpatient dose of atorvastatin 80 mg daily has been continued, LDL was 149 last admission and he had admitted to stopping most of his medications months prior to admission, but says he has been compliant since last admission.
-No evidence of acute HFrEF and his proBNP is lower than previous
-Chronic dose of Xarelto 20 mg daily for h/o DVT has been continued. There was also rumor that this was for possible LV thrombus prophylaxis, but patient says it is for his hypercoagulable disorder and previous DVT
-Communicated via TT with patient's hospitalist and recommended discharged home. Follow-up arranged and patient is in agreement with discharge.
[2025-03-20 07:55] LABS: Blood Urea Nitrogen 14 mg/dl (9-20); Calcium 9.3 mg/dl (8.4-10.2); Carbon Dioxide 26 mmol/L (22-30); Chloride 108 mmol/L (98-107); Estimated Creatinine Clearance 84 ml/min; Glucose 107 mg/dl (70-99); Potassium 4.5 mmol/L (3.5-5.1); Sodium 140 mmol/L (135-145); eGFR > 60.00
[2025-03-20] MEDS: XARELTO 20 MG PO (08:43)
[2025-03-20] MEDS: COREG 3.125 MG PO (08:43)
[2025-03-20] MEDS: PLAVIX 75 MG PO (08:43)
[2025-03-20 09:00] VITALS: BMI 25.9
[2025-03-20] MEDS: NEURONTIN 600 MG PO (09:38)
[2025-03-20 11:18] VITALS: BP 115/66
--- NOTE | 2025-03-20 11:47 | W.DS.TRANS ---
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
-
Discharge Instructions:
Discharge Diagnosis/Procedures Elevated Troponin, coronary artery disease
Diet 2 Gram Sodium
Activity No strenuous activity
Driving Restrictions As prior to admission
Bathing Restrictions None
Other Services Cardiac Rehab
Instructions:
Stand-Alone Forms:
Changes to Home Medications: No
Discharge Medications:
DC Medications w/original date entered in [employer]
atorvastatin 80 mg tablet 80 mg PO QPM ##30 05/31/16
carvedilol 3.125 mg tablet 3.125 mg PO BID ##60 05/31/16
clopidogrel 75 mg tablet 75 mg PO DAILY ##30 05/31/16
budesonide 160 mcg-glycopyr 9 mcg-formot 4.8 mcg/actuation HFA inhaler (Breztri Aerosphere) 2 inh inhalation BID 03/10/25
gabapentin 800 mg tablet 800 mg PO TID #90 tabs 03/12/25
nitroglycerin 0.4 mg sublingual tablet 0.4 mg sublingual [id number] PRN chest pain #30 tabs 03/12/25
rivaroxaban 20 mg tablet (Xarelto) 20 mg PO DAILY #30 tabs 03/12/25
Home Medication Changes
Pending Results: No
--- NOTE | 2025-03-20 13:55 | CM ---
Alert awake oriented patient who living alone in an apartment with 4 steps to enter. He is independent in driving and all ADLs.FERNANDEZ letter reviewed with patient . All questions answered and REBECCA signed on chart.
NO adaptive devices.
HX [place]N/SNF hx.
Pharmacy [facility]
PCP DR Black
PLAN Home no needs
--- NOTE | 2025-03-20 14:04 | PTCARENOTE ---
patient denies complaints, tolerating diet, independent in room, vss, for discharge to home
--- NOTE | 2025-03-20 15:18 | W.DCSUMMARY ---
Discharge Summary
Discharge Data
Date of Admission: 03/20/25
Date of Discharge: 03/20/25
-
Pending Results: No
Hospital Course
Patient is a 64y M with PMH significant for ASCVD, labile BP and CHFrEF who presents to ED for evaluation of low BP. Patient tells me that he was seen by a new PCP Tuesday. His BP was low in the office (80s systolic) and he was advised to
present immediately to the ED. Patient states that he had things to do and he drove to [place] and went about his day. He denies any symptoms of lightheadedness, dizziness, chest pain, dyspnea, etc.
He states that 'people were bugging me to come in' so he finally presented to the ED for evaluation.
At the time of my examination, patient is resting comfortably. He has no complaints.
He was recently hospitalized 03/10 - 03/12 secondary to chest pain/ ACS. He underwent cath on 03/11 which showed stable CAD. No stents / interventions performed.
He states that he has been compliant with his medications since his recent hospital discharge.
Patient remained asymptomatic with soft BP. In consultation by cardiology with recommendation to continue Coreg and the rest of the cardiovascular medication regimen. Plan is to follow-up with cardiology as outpatient for further adjustment.
Discharge Plan
-
Patient Disposition: Home (Routine Discharge)
Discharge Diagnosis/Procedures: Elevated Troponin, coronary artery disease
Condition: Good
Diet: 2 Gram Sodium
Activity: No strenuous activity
Driving Restrictions: As prior to admission
Bathing Restrictions: None
Other Services: Cardiac Rehab
Referrals:
Reagan Fernández MD [Active, Cardiology] - 03/26/25 12:40 pm
Referral Note: You are scheduled to see Dr. Ponce's nurse practitioner, Lara, at the [facility] office on 03/26/2025 at 12:40 PM. Please call [phone] if you need to reschedule.
Maria Luisa Black MD [Family Provider, Family Practice]
Prescriptions:
Continued
atorvastatin 80 MG tablet
80 mg PO QPM Qty: 30 3RF
clopidogrel 75 MG tablet
75 mg PO DAILY Qty: 30 3RF
carvedilol 3.125 MG tablet
3.125 mg PO BID Qty: 60 3RF
Breztri Aerosphere 160-9-4.8 mcg/actuation Hfa Aerosol Inhaler
2 inh INHALATION BID
nitroglycerin 0.4 mg Tablet, Sublingual
0.4 mg sublingual [id number] PRN (Reason: chest pain) Qty: 30 0RF
Xarelto 20 mg Tablet
20 mg PO DAILY Qty: 30 0RF
gabapentin 800 mg tablet
800 mg PO TID Qty: 90 0RF
Discharge Orders:
Discharge Patient (As Directed); Ordered 03/20/25
Ordered By: Camilo Espinosa
Discharge Date and Time
Discharge Date/Time: 03/20/25 14:09
Print Language: ANGOLAN
== END 2025-03-20 14:09 | disposition home or self-care (01) ==
LOC: 3 WEST ACU 05:00
PROVIDERS: Physician Assistant; ADMITTING PHYSICIAN Hospitalist; ATTENDING PHYSICIAN Internal Medicine; EMERGENCY PHYSICIAN Student in an Organized Health Care Education/Training Program; FAMILY PHYSICIAN Family Medicine; OTHER PHYSICIAN Internal Medicine Cardiovascular Disease
DX: I25.10 Atherosclerotic heart disease of native coronary artery without angina pectoris (principal); R07.9 Chest pain, unspecified; I95.9 Hypotension, unspecified; I11.0 Hypertensive heart disease with heart failure; I50.22 Chronic systolic (congestive) heart failure; I21.4 Non-ST elevation (NSTEMI) myocardial infarction; F17.200 Nicotine dependence, unspecified, uncomplicated; G89.4 Chronic pain syndrome; J44.9 Chronic obstructive pulmonary disease, unspecified; Z79.01 Long term (current) use of anticoagulants; Z79.899 Other long term (current) drug therapy; Z79.02 Long term (current) use of antithrombotics/antiplatelets
CPT/HCPCS: 71046; 80048; 80053; 83880; 84484; 85025; 85027; 85730; 87070; 93005; 94640; 96374; 99285; G0378

== ENCOUNTER 2025-03-28 15:44 | Emergency (ER) | payer MEDICARE, SELFPAY ==
[2025-03-28] VITALS (23 sets, daily range): BP systolic 81–131; BP diastolic 50–83; BMI 25.8
[2025-03-28] MEDS: NITROSTAT (SUBLINGUAL) 0.4 MG SL (16:48)
[2025-03-28 16:50] LABS: Hematocrit 40.0 % (39.0-52.0); Hemoglobin 13.7 g/dL (13.0-18.0); Mean Corp Hgb Conc. 34.3 g/dL (33.0-37.0); Mean Corpuscular Volume 95.7 fL (80.0-94.0); Platelet Count 187 10^3/uL (130-400); Red Cell Dist. Width 12.3 % (11.5-14.5)
[2025-03-28] MEDS: NSS 1000 IV (16:50)
--- NOTE | 2025-03-28 16:51 | ED.GENMED ---
History of Present Illness
General
Chief Complaint: Chest Pain
Source: patient and spouse
Time Seen by Provider: 03/28/25 16:14
History of Present Illness
History of Present Illness:
This patient is a 64-year-old male presents emergency department with complaints of chest discomfort and dyspnea that started while walking his dog at around 130 today. He walked back to his friend's house sat down and waited for symptoms to
resolve. He then eventually walked to his house which was 2 blocks away and took nitroglycerin x 3. The nitroglycerin made him feel better but did not fully resolve his symptoms. He has continued to have the symptoms since 130 today and denies
any chest pain-free episodes since then. He denies associated diaphoresis, nausea, vomiting, headache, dizziness, back pain, neck pain, jaw pain. The pain is not ripping or tearing in quality, and does not radiate through to his back. He denies
abdominal pain. He does note the pain is in the left side of his anterior chest. It is not pleuritic in nature.
Past History
Past History
ED Past Medical History: CAD, CHF and IA
ED Past Surgical History: Cardiac (harvested radial artery for CABG)
Social History
Tobacco: Former smoker
Alcohol: None
Drug: None
Personal: (Noncontributory)
Living: with family
Employment: Employed
Family History
Family History: Other
Phy Exam
Physical Exam
Physical Exam:
GENERAL: Alert , in no apparent distress
EYE: pupils equal and reactive
NECK: Supple, no significant adenopathy.
ENT: o/p clr, mmm.
CARDIAC: Regular rate and rhythm .
LUNGS: Equal breath sounds bilaterally, no acute respiratory distress, no rales or rhonchi, scattered wheezing noted
ABDOMEN: Soft, without focal tenderness, no r/g, no cvat
NEUROLOGICAL: Alert and oriented, no focal neuro deficits
SKIN: Warm and dry, skin intact.
MUSCULOSKELETAL: No edema, well perfused.
PSYCH: Normal and appropriate interaction.
Scores
Heart Score for Chest Pain Patients
STEMI patient?: Not applicable
Course
Orders/Labs/Results
Orders:
Orders
03/28/25
Electrocardiogram (*1) Stat
Comment: DONE
03/28/25 16:31
Cardiac Monitoring- Treatment ONCE
03/28/25 16:39
Complete Blood Count/No Diff Urgent
Comprehensive Metabolic Panel Urgent
NT-proBNP Urgent
Comment: ADD ON
Troponin I Urgent
03/28/25 16:43
Nitroglycerin Sublingual [Nitrostat (Sublingual)] 0.4 mg SL NOW STA
03/28/25 16:49
0.9% Sodium Chloride 1000 ml [Nss] 1,000 ml IV BOLUS
03/28/25 16:50
Aspirin 325 mg PO NOW STA
03/28/25 17:02
Add On- LAB Urgent
Tests Added?: Pro BNP
03/28/25 19:26
EKG [Electrocardiogram (*1)] Urgent
Reason for Study: Chest Pain
EKG- Treatment ONCE
03/28/25 19:43
Troponin I Urgent
Abnormal Lab Results
03/28/25
16:39
RBC 4.18 L 10^6/uL
(4.70-6.10)
MCV 95.7 H fL
(80.0-94.0)
MCH 32.8 H pg
(27.0-31.0)
MPV 11.9 H fL
(7.4-10.4)
Chloride 108 H mmol/L
(98-107)
03/28/25 16:39
03/28/25 16:39
Vital Signs
Initial and Last Documented VS:
Initial Vital Signs
Temp Pulse Resp BP Pulse Ox
98.2 F 77 18 103/54 98
03/28/25 15:55 03/28/25 15:55 03/28/25 15:55 03/28/25 15:55 03/28/25 15:55
Last Documented Vital Signs
Temp Pulse Resp BP Pulse Ox
98.5 F 75 18 112/50 96
03/28/25 16:13 03/28/25 21:15 03/28/25 21:15 03/28/25 21:15 03/28/25 21:00
*Pulse Oximetry
SaO2: 97
Oxygen Mode of Delivery: Room air
Patient hypoxic: no
*Critical Care Note
Total Time (30-74mins, 75-104mins- exclusive of procedures): Not Applicable
Update Note
Update Note:
Patient presents to the Emergency Department with __chest pain and dyspnea
Number and Complexity of Problems Addressed at the Encounter
� Chronic conditions affecting care:
� Acute Exacerbation and/or Progression of Chronic Illness:
� Differential Diagnosis includes: But not limited to ACS, anxiety, PE, lung disease, etc.
Amount and/or Complexity of Data to be Reviewed and Analyzed
� I performed an independent evaluation of and my interpretation is:
EKG:read by me, nsr with pvc's, no acute ischemia
CT:
Xrays:
Laboratory Studies: Troponin without significant delta.
Other:
� Review of other/old records reveals: Patient was admitted in late February of this year and had a catheterization that demonstrated stable coronary disease not amenable to percutaneous intervention. At that time, it was
recommended that patient maximize medical therapy. He then was admitted after that with reported hypotension and medication adjustments were made.
� Clinical information was obtained by an independent historian: who is bedside
� Prescriptions/Medications Considered but not given:
� Further testing considered but not performed:
Risk of Complications and/or Morbidity or Mortality of Patient Management
� Social determinants of health affecting care:
� Discussion with other providers (PCP, Hospitalists, Consultants, etc):
� Escalation of care including admission/observation vs risk of discharge considered: Patient is pain-free, very comfortable. Long discussion with patient and partner regarding several concerns thought that his systolic blood
pressure has been in the low 100s and is noted that some of his hypertensive medications were recently changed in response to hypotension. He will contact the cost report clerk in the morning to further consider modification of his hypertensive meds. I
have low suspicion that his symptoms today were consistent with ACS� Especially given recent catheterization that showed stable disease, unremarkable ECG, etc., patient will be discharged with close follow-up tomorrow. Case discussed with Dr. Vargas
Ryan as above.
ED Attending Note
-
Portions of this chart may have been created with voice recognition software.� Occasional wrong word or��sound alike� substitutions may have occurred due to the inherent limitations of voice recognition software.
Discharge Plan
Departure
Patient Disposition: Home (Routine Discharge)
Date of Disposition: 03/28/25
Time of Disposition: 21:23
Patient with high blood pressure during this ER visit?: No
Condition: Good
Discharge Problem:
Chest pain
Instructions: Chest Pain DCA Follow Up
Prescriptions:
No Action
clopidogrel 75 MG tablet
75 mg PO DAILY Qty: 30 3RF
carvedilol 3.125 MG tablet
3.125 mg PO BID Qty: 60 3RF
Breztri Aerosphere 160-9-4.8 mcg/actuation Hfa Aerosol Inhaler
2 inh INHALATION .SEE BELOW PRN (Reason: sob)
Patient Comments:
03/28/2025, pt. gets samples from his PCP; was told to take 2 puffs daily; however, due to expensive copay, he uses dailyprn.
nitroglycerin 0.4 mg Tablet, Sublingual
0.4 mg sublingual [id number] PRN (Reason: chest pain) Qty: 30 0RF
Patient Comments:
03/28/2025, pt. took 3 tablets today.
Xarelto 20 mg Tablet
20 mg PO DAILY Qty: 30 0RF
gabapentin 800 mg tablet
800 mg PO TID Qty: 90 0RF
loperamide [Imodium] 2 mg Capsule
4 mg PO Q4HPRN PRN (Reason: diarrhea)
isosorbide mononitrate 30 mg Tablet Extended Release 24 Hr
30 mg PO DAILY
acetaminophen [Tylenol Extra Strength] 500 mg Tablet
1,500 mg PO QIDPRN PRN (Reason: mild pain)
spironolactone 25 mg Tablet
25 mg PO DAILY
simvastatin 40 mg Tablet
40 mg PO DAILY
methotrexate sodium 2.5 mg Tablet
15 mg PO MO
folic acid 1 mg Tablet
1 mg PO BID
albuterol sulfate 90 mcg/actuation Hfa Aerosol Inhaler
1 puff INHALATION R QIDPRN PRN (Reason: sob/wheezing)
valsartan 40 mg Tablet
40 mg PO BID
Referrals:
NONE,* [Active, Internal Medicine]
Activity Restrictions/Additional Instructions:
PLEASE CONTACT YOUR JAVA ENGINEER IN THE MORNING FOR CLOSE FOLLOW-UP. IF YOU DEVELOP RECURRENT CHEST PAIN, ANY SHORTNESS OF BREATH, DIZZINESS, SWEATINESS, NAUSEA, NECK OR JAW PAIN, OR OTHER WORRISOME SIGNS, PLEASE RETURN TO THE ER IMMEDIATELY!
Interventions
Interventions:
*Risk Screen - Suicide Last Done: 03/28/25 15:55
*General Assessment Last Done: 03/28/25 16:13
*Neglect/Abuse Screening Last Done: 03/28/25 15:55
*ED- Fall Risk Assessment Last Done: 03/28/25 21:45
*ED COVID-19 Vaccine History Last Done: 03/28/25 16:13
*Nursing Disposition Last Done: 03/28/25 21:45
ED- Cardiac Assessment Last Done: 03/28/25 16:13
Discharge Date and Time
Discharge Date/Time: 03/28/25 21:45
Print Language: KUWAITI
[2025-03-28] MEDS: ASPIRIN 325 MG PO (16:53)
[2025-03-28 17:05] LABS: ALT (SGPT) 17 U/L (0-50); AST (SGOT) 23 U/L (17-59); Albumin 4.5 g/dl (3.5-5.0); Alkaline Phosphatase 58 U/L (38-126); Blood Urea Nitrogen 16 mg/dl (9-20); Calcium 9.3 mg/dl (8.4-10.2); Carbon Dioxide 25 mmol/L (22-30); Chloride 108 mmol/L (98-107); Estimated Creatinine Clearance 84 ml/min; Glucose 96 mg/dl (70-99); Potassium 4.2 mmol/L (3.5-5.1); Sodium 137 mmol/L (135-145); Total Protein 7.1 g/dl (6.3-8.2); eGFR > 60.00
[2025-03-28 17:16] LABS: Troponin I < 0.012 ng/ml
[2025-03-28 20:27] LABS: Troponin I 0.016 ng/ml
== END 2025-03-28 21:45 | disposition home or self-care (01) ==
LOC: EMR 15:44
PROVIDERS: EMERGENCY PHYSICIAN Emergency Medicine; FAMILY PHYSICIAN Family Medicine
DX: R07.89 Other chest pain (principal); I25.10 Atherosclerotic heart disease of native coronary artery without angina pectoris; I25.2 Old myocardial infarction; Z87.891 Personal history of nicotine dependence; Z95.1 Presence of aortocoronary bypass graft; I11.0 Hypertensive heart disease with heart failure; I50.9 Heart failure, unspecified; Z79.899 Other long term (current) drug therapy
CPT/HCPCS: 99284; 80053; 83880; 84484; 85027; 93005

== ENCOUNTER 2025-04-13 13:52 | Emergency (ER) | payer MEDICARE, SELFPAY ==
[2025-04-13 13:53] VITALS: BP 166/85
[2025-04-13 14:19] VITALS: BP 108/77
--- NOTE | 2025-04-13 14:54 | ED.GENMED ---
History of Present Illness
General
Chief Complaint: Breathing Problem
Source: patient and significant other
Time Seen by Provider: 04/13/25 14:23
History of Present Illness
History of Present Illness:
64-year-old male with a history of heart failure presents emergency department complaints of increasing dyspnea on exertion and orthopnea over the last 2 days. He states that he typically takes nitro every day although he had not for the last 3
days until yesterday when he had chest pressure which was relieved with nitroglycerin x 2. No chest pain since that time. He denies fever, chills, vomiting but has had mild nausea. He also notes lightheadedness despite any position that he is
not. He denies associated abdominal pain, back pain, urinary symptoms. He states that his carvedilol was recently increased and his significant other who is bedside states that his blood pressure has been measuring below the last 2 days. He also
states that he has lost approximately 5 pounds.
Past History
Past History
ED Past Medical History: CAD, CHF and AR
ED Past Surgical History: Cardiac (harvested radial artery for CABG)
Social History
Tobacco: Former smoker
Alcohol: None
Drug: None
Personal: (Noncontributory)
Living: with family
Employment: Employed
Family History
Family History: Other
Phy Exam
Physical Exam
Physical Exam:
GENERAL: Alert , in no apparent distress
EYE: pupils equal and reactive
NECK: Supple, no significant adenopathy.
ENT: o/p clr, mmm.
CARDIAC: Regular rate and rhythm .
LUNGS: Equal breath sounds bilaterally, no acute respiratory distress, scattered wheezing noted
ABDOMEN: Soft, without focal tenderness, no r/g, no cvat
NEUROLOGICAL: Alert and oriented, no focal neuro deficits
SKIN: Warm and dry, skin intact.
MUSCULOSKELETAL: No edema, well perfused.
PSYCH: Normal and appropriate interaction.
Scores
Heart Failure Risk
Heart Failure Risk Score: Not Applicable
Course
Orders/Labs/Results
Orders:
Orders
04/13/25 13:55
Electrocardiogram (*1) Urgent
Reason for Study: Shortness of Breath
EKG- Treatment ONCE
04/13/25 14:52
Cardiac Monitoring- Treatment ONCE
Ipratropium/Albuterol Sulfate [Duoneb] 3 ml INH R NOW ONE
CR Chest - 2 Views Urgent
Comment:
Reason For Exam: sob
Pulse Ox/cont/shift [RESP] Stat
Quantity: 1
04/13/25 15:00
Complete Blood Count/No Diff Urgent
Comprehensive Metabolic Panel Urgent
NT-proBNP Urgent
Troponin I Urgent
Abnormal Lab Results
04/13/25
15:00
WBC 3.8 L 10^3/uL
(4.8-10.8)
RBC 4.34 L 10^6/uL
(4.70-6.10)
MCH 32.0 H pg
(27.0-31.0)
MPV 11.3 H fL
(7.4-10.4)
Glucose 148 H mg/dl
(70-99)
04/13/25 15:00
04/13/25 15:00
Vital Signs
Initial and Last Documented VS:
Initial Vital Signs
Temp Pulse Resp BP Pulse Ox
98.1 F 75 16 166/85 97
04/13/25 13:53 04/13/25 13:53 04/13/25 13:53 04/13/25 13:53 04/13/25 13:53
Last Documented Vital Signs
Temp Pulse Resp BP Pulse Ox
98.1 F 72 17 124/97 96
04/13/25 13:53 04/13/25 17:15 04/13/25 17:15 04/13/25 17:00 04/13/25 17:15
*Pulse Oximetry
SaO2: 97
Oxygen Mode of Delivery: Room air
Patient hypoxic: no
*Critical Care Note
Total Time (30-74mins, 75-104mins- exclusive of procedures): Not Applicable
Update Note
Update Note:
Patient presents to the Emergency Department with dizziness and shortness of breath
Number and Complexity of Problems Addressed at the Encounter
� Chronic conditions affecting care:
� Acute Exacerbation and/or Progression of Chronic Illness:
� Differential Diagnosis includes: But not limited to pneumonia, heart failure exacerbation, medication effect, ACS, etc. etc.
Amount and/or Complexity of Data to be Reviewed and Analyzed
� I performed an independent evaluation of and my interpretation is:
EKG: Read by me, normal sinus rhythm, normal rate, normal axis, no acute ischemia
CT:
Xrays:cxr nad read by me
Laboratory Studies: Labs generally unremarkable/unchanged from prior
Other:
� Review of other/old records reveals:
� Clinical information was obtained by an independent historian:
� Prescriptions/Medications Considered but not given:
� Further testing considered but not performed:
Risk of Complications and/or Morbidity or Mortality of Patient Management
� Social determinants of health affecting care:
� Discussion with other providers (PCP, Hospitalists, Consultants, etc):
� Escalation of care including admission/observation vs risk of discharge considered: Consideration for chest CT rule out PE given patient was complaining of dyspnea earlier and no other specific etiology noted with exception of
wheezing consistent with his COPD. Overall I think it is low likelihood, but nonetheless did recommend however patient declines. I do suspect his dizziness is related at least in part to his recent increase in his carvedilol dosing, and he in fact
reiterates that his symptoms started when he increased his dose. No acute neurological abnormalities noted, NIH equal to 0. Not hypotensive here. Stable for discharge. 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
do.
ED Attending Note
-
Portions of this chart may have been created with voice recognition software.� Occasional wrong word or��sound alike� substitutions may have occurred due to the inherent limitations of voice recognition software.
Discharge Plan
Departure
Patient Disposition: Home (Routine Discharge)
Date of Disposition: 04/13/25
Time of Disposition: 17:16
Patient with high blood pressure during this ER visit?: Yes
Condition: Good
Discharge Problem:
Dizziness
Instructions: Dizziness, BLOOD PRESSURE
Prescriptions:
No Action
clopidogrel 75 MG tablet
75 mg PO DAILY Qty: 30 3RF
carvedilol 3.125 MG tablet
3.125 mg PO BID Qty: 60 3RF
Breztri Aerosphere 160-9-4.8 mcg/actuation Hfa Aerosol Inhaler
2 inh INHALATION .SEE BELOW PRN (Reason: sob)
Patient Comments:
03/28/2025, pt. gets samples from his PCP; was told to take 2 puffs daily; however, due to expensive copay, he uses dailyprn.
nitroglycerin 0.4 mg Tablet, Sublingual
0.4 mg sublingual [id number] PRN (Reason: chest pain) Qty: 30 0RF
Patient Comments:
03/28/2025, pt. took 3 tablets today.
Xarelto 20 mg Tablet
20 mg PO DAILY Qty: 30 0RF
gabapentin 800 mg tablet
800 mg PO TID Qty: 90 0RF
loperamide [Imodium] 2 mg Capsule
4 mg PO Q4HPRN PRN (Reason: diarrhea)
isosorbide mononitrate 30 mg Tablet Extended Release 24 Hr
30 mg PO DAILY
acetaminophen [Tylenol Extra Strength] 500 mg Tablet
1,500 mg PO QIDPRN PRN (Reason: mild pain)
spironolactone 25 mg Tablet
25 mg PO DAILY
simvastatin 40 mg Tablet
40 mg PO DAILY
methotrexate sodium 2.5 mg Tablet
15 mg PO MO
folic acid 1 mg Tablet
1 mg PO BID
albuterol sulfate 90 mcg/actuation Hfa Aerosol Inhaler
1 puff INHALATION R QIDPRN PRN (Reason: sob/wheezing)
valsartan 40 mg Tablet
40 mg PO BID
Referrals:
Maria Luisa Black MD [Family Provider, Family Practice]
Activity Restrictions/Additional Instructions:
PLEASE FOLLOW UP WITH YOUR ASSOCIATE MANAGER AFFILIATE MARKETING SCHEDULED ON TUESDAY. IN THE MEANTIME, DECREASE YOUR CARDVEDILOL DOSE DISCUSSED. IF YOU DEVELOP PERSISTENT DIZZINESS, CHEST PAIN, TROUBLE BREATHING, FEVER, VOMITING OR OTHER WORRISOME SIGNS, GO TO THE
ER IMMEDIATELY1!
Interventions
Interventions:
*Risk Screen - Suicide Last Done: 04/13/25 13:55
*General Assessment Last Done: 04/13/25 14:32
*Neglect/Abuse Screening Last Done: 04/13/25 13:55
*ED- Fall Risk Assessment Last Done: 04/13/25 14:32
*ED COVID-19 Vaccine History Last Done: 04/13/25 14:32
*Nursing Disposition Last Done: 04/13/25 17:37
ED- Cardiac Assessment Last Done: 04/13/25 14:32
ED- Pulmonary Assessment Last Done: 04/13/25 14:32
Discharge Date and Time
Discharge Date/Time: 04/13/25 17:39
Print Language: URUGUAYAN
[2025-04-13] MEDS: DUONEB 3 ML INH (14:58)
[2025-04-13 15:00] VITALS: BP 118/66
[2025-04-13 15:22] LABS: Hematocrit 40.8 % (39.0-52.0); Hemoglobin 13.9 g/dL (13.0-18.0); Mean Corp Hgb Conc. 34.1 g/dL (33.0-37.0); Mean Corpuscular Volume 94.0 fL (80.0-94.0); Platelet Count 179 10^3/uL (130-400); Red Cell Dist. Width 12.5 % (11.5-14.5)
[2025-04-13 15:45] LABS: ALT (SGPT) 15 U/L (0-50); AST (SGOT) 24 U/L (17-59); Albumin 4.5 g/dl (3.5-5.0); Alkaline Phosphatase 54 U/L (38-126); Blood Urea Nitrogen 15 mg/dl (9-20); Calcium 9.6 mg/dl (8.4-10.2); Carbon Dioxide 29 mmol/L (22-30); Chloride 105 mmol/L (98-107); Glucose 148 mg/dl (70-99); Potassium 4.4 mmol/L (3.5-5.1); Sodium 138 mmol/L (135-145); Total Protein 7.1 g/dl (6.3-8.2); eGFR > 60.00
[2025-04-13 15:52] LABS: Troponin I 0.017 ng/ml
[2025-04-13 16:17] VITALS: BP 129/82
[2025-04-13 17:00] VITALS: BP 124/97
== END 2025-04-13 17:39 | disposition home or self-care (01) ==
LOC: EMR 13:52
PROVIDERS: EMERGENCY PHYSICIAN Emergency Medicine; FAMILY PHYSICIAN Family Medicine
DX: R42 Dizziness and giddiness (principal); I25.10 Atherosclerotic heart disease of native coronary artery without angina pectoris; I50.9 Heart failure, unspecified; I25.2 Old myocardial infarction; Z87.891 Personal history of nicotine dependence
CPT/HCPCS: 94640; 99285; 71046; 80053; 83880; 84484; 85027; 93005

== ENCOUNTER → 2025-06-25 12:54 | Outpatient (REF) | payer MEDICARE, SELFPAY ==
--- NOTE | 2025-06-25 14:10 | CARDSERVLU ---
Echocardiogram with [facility] completed after protocol screening completed. Allergies verified.
Patent IV site: __new start 1st attempt 22P LFA, tolerated.___
IV site flushed with 0.9% NaCl pre and post administration.
Diluted bolus method utilized to enhance visualization of ventricular dimas.
Total volume given: __3.5__ mL under direction echosonographer.
site dcd at completion of test.
Instructed specifically to report symptoms of distress to MD - pt noted complaints of a possible 'clot' 'in my leg' and relates he had run out of plavix. denies distress at this time.
Patient tolerated all procedures well without complications.
== END ==
LOC: RCS 12:54
PROVIDERS: ATTENDING PHYSICIAN Nurse Practitioner; FAMILY PHYSICIAN Family Medicine
DX: I25.2 Old myocardial infarction (principal)
CPT/HCPCS: 93306; Q9950